=== PATIENT | female | born 1935 | race Caucasian/White ===

== ENCOUNTER 2018-03-12 08:29 | Outpatient (CLI) | payer MEDICARE | END 2018-03-12 08:30 | disposition home or self-care (01) | LOC: BICMAMMO 08:29 | PROVIDERS: ATTEND Family Medicine | DX: Z12.31 Encounter for screening mammogram for malignant neoplasm of breast (principal) | CPT/HCPCS: 77063; 77067 ==

== ENCOUNTER 2018-04-13 05:48 | Inpatient (IN) | payer MEDICARE ==
[2018-04-13] MEDS ORDERED: Diltiazem 125 MG/25 ML ONE (06:11)
[2018-04-13 06:29] LABS: #Basophils 0.1 thou/uL (0.0-0.2); #Eosinphils 0.2 thou/uL (0.0-0.7); #Lymphocytes 3.6 thou/uL (1.20-3.40); #Monocytes 0.8 thou/uL (0.11-0.59); #Neutrophils 5.3 thou/uL (1.40-6.50); %Basophils 0.9 % (0.0-1.0); %Eosinophils 1.6 % (0.0-10.0); %Lymphocytes 35.9 % (21.0-51.0); %Monocytes 8.3 % (0.0-10.0); %Neutrophils 53.4 % (42.0-75.0); Hemoglobin 13.3 g/dL (12.0-16.0); Mean Corpuscular HGB CONC 33.3 g/dL (32.0-36.0); Mean Corpuscular Hemoglobin 30.1 pg (27.0-31.0); Mean Corpuscular Volume 90.3 fl (81.0-99.0); Mean Platelet Volume 9.3 fL (7.4-10.4); Platelet Count 256 thou/uL (130-400); RBC Distribution Width 13.5 % (11.5-14.5); Red Blood Cell (RBC) Count 4.42 mill/uL (4.20-5.40)
[2018-04-13 06:44] LABS: ALT (SGPT) 145 U/L (8-55); AST (SGOT) 86 U/L (5-34); Albumin 4.1 g/dL (3.4-4.8); Alkaline Phosphatase 84 U/L (40-150); Anion Gap 9 mmol/L (10-20); BUN (Urea Nitrogen) 20 mg/dL (9.8-20.1); Bilirubin, Total 1.1 mg/dL (0.2-1.2); Calc. Creatinine Clearance 0 mL/min (70-130); Calcium 9.5 mg/dL (7.8-10.44); Carbon Dioxide 26 mmol/L (23-31); Chloride 108 mmol/L (98-107); Estimated GFR-MDRD 70; Globulin 2.9 g/dL (2.4-3.5); Glucose 121 mg/dL (83-110); Potassium 4.3 mmol/L (3.5-5.1); Sodium 139 mmol/L (136-145)
[2018-04-13 06:48] LABS: CKMB 0.8 ng/mL (0-6.6); Troponin I 0.012 ng/mL (< 0.028)
[2018-04-13] MEDS ORDERED: Diltiazem 125 MG in Sodium Chloride 0.9% 100 ML IVPB SCH (07:30)
[2018-04-13 08:14] LABS: Bilirubin Negative (Negative); Blood, Urine Negative (Negative); Clarity CLEAR (Clear); Glucose, Urine (Dipstick) Negative (Negative); Leukocyte Small (Negative); Nitrite Negative (Negative); Protein, Urine (Dipstick) Negative (Neg-Trace); pH, Urine 6.5 (5.0-9.0)
[2018-04-13 08:17] LABS: Bacteria/HPF None Seen HPF (None Seen); Hyaline Casts/LPF 0-3 HYALINE CAST LPF (0-3 Hyaline); RBC/HPF 0-3 HPF (0-3); Squamous Epithelial None Seen HPF (0-3); WBC/HPF 0-3 HPF (0-3)
--- NOTE | 2018-04-13 09:03 | RAD ---
CHEST 1 VIEW: HISTORY: Weakness. COMPARISON: 09/24/17. FINDINGS: Enlarged cardiac silhouette. The pulmonary vessels and hilum are normal. Costophrenic angles are cl ear. Interstitial opacities may represent edema. No consolidation or mass. No pneumothorax or osse ous abnormalities. IMPRESSION: Cardiomegaly. Interstitial opacities. Congestive heart failure. POS: [facility]
[2018-04-13 09:20] VITALS: BMI 26.9
[2018-04-13 09:49] LABS: Troponin I 0.012 ng/mL (< 0.028)
[2018-04-13] MEDS ORDERED: Prevnar 13-Val Conj/PF 0.5 ML SYRINGE IM ONE (10:00)
[2018-04-13] MEDS ORDERED: Enoxaparin Sodium 80 MG/0.8 ML SYRINGE SC SCH ×2 (11:15→21:00)
[2018-04-13 12:52] LABS: Troponin I 0.017 ng/mL (< 0.028)
--- NOTE | 2018-04-13 15:36 | HP ---
TIME: 11 a.m. HISTORY OF PRESENT ILLNESS: This is an 82-year-old white female with history of hypertension and hyp erlipidemia, who presents with chest discomfort and new onset atrial fibrillation. The patient has b een doing well. She has a history of SVT status post cardiac ablation. She has been followed by Dr. Sunshine for many years. She was doing well till approximately 4 weeks ago. She has been feeling m ore and more weak and fatigued. Then 2 weeks ago, her symptoms were becoming worse. She was complai juancarlos of increased shortness of breath and simply chest discomfort. She would feel discomfort especia lly with bending over and picking something up. This morning at approximately 5:00 a.m., she was fee ling worse than usual. She felt ill and something just was not right. She did not have obvious ches t pain or radiation. She has simply felt ill. She then requested her son to take her to the emergen cy room where she was diagnosed with new onset atrial fibrillation. At this time she is feeling okay . No complaints of chest pain or shortness of breath. She does feel her chest to be uncomfortable. PAST MEDICAL HISTORY: Hypothyroidism, history of SVT, hypertension, hyperlipidemia. PAST SURGICAL HISTORY: Include cardiac ablation. She has had moderate to severe aortic regurg as we ll as mitral regurg in the past. FAMILY HISTORY: Father with heart disease, at 72 with an IA. Mother at 93 with CHF. Sist er with breast cancer and brother with throat cancer. SOCIAL HISTORY: She is . She has 4 daughters and one son, 9 grands and several of great gran dkids. She has been a housewife for many years. MEDICATIONS: Aspirin 81 mg daily, lisinopril 15 mg daily, Lipitor 40 daily, and Synthroid 25 daily. REVIEW OF SYSTEMS: As above. PHYSICAL EXAMINATION: VITAL SIGNS: Temperature 98.0, pulse 85, respirations 16, pulse ox 95%, blood pressure 153/84. HEENT: Clear. NECK: Supple. HEART: Irregularly irregular, rate controlled. LUNGS: Clear. ABDOMEN: Soft. EXTREMITIES: With no edema. LABORATORY DATA: White count 10.0, hemoglobin and hematocrit 13 and 40, platelet of 256. Electrolyt es normal. Creatinine 0.79, BUN 20, blood sugar 121. Troponin I 0.012. BNP 280, AST 86, and ALT 14 5. ASSESSMENT: 1. New onset atrial fibrillation. 2. History of supraventricular tachycardia, status post cardiac ablation. 3. Hypothyroidism. 4. Hypertension. 5. Hyperlipidemia. 6. Elevated liver function tests, unknown etiology at this time. PLAN: 1. Consult Dr. Sunshine who patient has seen many times in the past. 2. We will need anticoagulation. 3. Echocardiogram. 4. We will have to work up the elevated liver function test.
[2018-04-13] MEDS: Carvedilol 3.125 MG TAB PO SCH (21:02)
[2018-04-13] MEDS: Atorvastatin Calcium 40 MG TAB PO SCH (21:02)
[2018-04-13] MEDS: Enoxaparin Sodium 80 MG/0.8 ML SYRINGE SC SCH (21:03)
[2018-04-14 04:56] LABS: Cardiac Risk 3.1 (Less than 4.5)
[2018-04-14] MEDS ORDERED: Sodium Chloride 0.9% 10 ML ONE (05:39)
[2018-04-14] MEDS: Furosemide 20 MG/2 ML VIAL SLOW IVP SCH ×2 (06:20→14:13)
[2018-04-14] MEDS: Levothyroxine Sodium 25 MCG TAB PO SCH (06:20)
[2018-04-14] MEDS: Aspirin 325 MG TAB PO SCH (08:42)
[2018-04-14] MEDS: Carvedilol 3.125 MG TAB PO SCH (08:42)
[2018-04-14] MEDS: Enoxaparin Sodium 80 MG/0.8 ML SYRINGE SC SCH ×2 (08:42→20:54)
[2018-04-14] MEDS ORDERED: Lisinopril 20 MG TAB PO SCH (09:00)
[2018-04-14] MEDS ORDERED: Lisinopril 10 MG TAB PO SCH (09:00)
--- NOTE | 2018-04-14 10:04 | PRG ---
DATE OF SERVICE: 04/14/2018 SUBJECTIVE: The patient is doing well. She is breathing easier. No complaints of chest pain or kierra rtness of breath. OBJECTIVE: VITAL SIGNS: Temperature 98.5, pulse 76, respirations 20, pulse oximetry 97, blood pressure 121/74. GENERAL: In no acute distress. HEART: Irregularly irregular, rate controlled. LUNGS: Clear. ABDOMEN: Soft. EXTREMITIES: With no edema. LABORATORY DATA: TSH 2.32. Cholesterol is 113, triglycerides 70. ASSESSMENT: 1. New onset atrial fibrillation, on Cardizem drip and rate is controlled. 2. Severe mitral regurgitation with enlarged right ventricle with an ejection fraction of 40%-45%. 3. Hypothyroidism, controlled. 4. Hypertension. 5. Hyperlipidemia. 6. Elevated liver function tests. 7. History of supraventricular tachycardia, status post cardiac ablation. 8. Elevated liver function tests, possibly secondary to liver congestion. PLAN: Continue to follow with Dr. Sunshine, maybe looking at a valve replacement in the near future.
--- NOTE | 2018-04-14 12:30 | CON ---
DATE OF CONSULTATION: 04/13/2018 HISTORY OF PRESENT ILLNESS: Jen Paul is an 82-year-old white female that was initially evaluated in 10/2002. At that time, she gave a 2 to 3 -year history of intermittent rapid heartbeat, which she tended to ignore. She later had another episode where she had weakness, poor energy level, headache and some lightheadedness. She continued to feel bad the following day and ultimately went to see Dr. Chino Dc. She was found to have a very rapid heartbeat and was sent to the emergency room. She denied any chest discomfort or shortness of breath. She was in supraventricular tachycardia with a rate of 177 per minute. She was given adenosine 6 mg followed by a second 6 mg bolus and her heart rate gradually slowed. She was started on Cardizem 20 mg IV bolus and then 10 mg per hour drip and converted to sinus rhythm. She was seen by Dr. Yovani Merchant. Since this was right before [place], it was felt she could be discharged. She came back one week later and underwent ablation of supraventricular tachycardia (A-V cathy reentry). She denies any significantly rapid heartbeat since that time. She also was followed periodically with echocardiograms due to valvular heart disease. In 04/2003, she had moderate mitral regurgitation and mild aortic insufficiency. This continued to gradually worsen and then in 07/2006, she had [id number] mitral regurgitation and suelfbwi-hb-mzvbnw aortic insufficiency. Her blood pressure was elevated on that day which may have contributed to her valvular abnormalities on that echo. She was hospitalized in 04/2007 with lower abdominal pain as well as chest pressure and nausea. The pressure in her chest only lasted several minutes. Cardiac enzymes were unremarkable. She underwent adenosine Cardiolite testing, which revealed no evidence of ischemia. Ejection fraction on echo was 55%-60% with moderate-to- severe aortic insufficiency and bktuclpa-ng-kasyab mitral regurgitation. She has continued to be followed for her valvular abnormalities and in general has been asymptomatic. She has been placed on gradually increasing doses of lisinopril for hypertension. When she was last seen in 04/2017, she was again instructed to use antibiotic prophylaxis as well as to report any exertional chest discomfort, shortness of breath or swelling. On her last echocardiogram in 04/2017, ejection fraction was 55%-60% with moderate mitral regurgitation, aortic valvular sclerosis, wrawazsr-bn-hzohip aortic regurgitation, moderate tricuspid regurgitation and mild pulmonic regurgitation. She apparently has been doing well until the last month. She began to notice exertional shortness of breath. She also has had some episodes of PND. Her most prominent symptom has been weakness and fatigue. She denies any peripheral edema. Also at times when she feels short of breath, she will have slight pressure in the lower part of sternum. Yesterday, she asked her son to take her to the emergency room due to how she was feeling. She was found to be in atrial fibrillation with fast ventricular response and is admitted. She has been placed on Cardizem drip. Her rate has slowed to the 80s-90s. She also has been placed on carvedilol 3.125 b.i.d. Cardiac enzymes have been unremarkable. PAST MEDICAL HISTORY: Hypothyroidism, hypercholesterolemia and hypertension. No history of diabetes. She has hypothyroidism. History of supraventricular tachycardia with ablation. OPERATIONS: Ablation of her supraventricular tachycardia. MEDICATIONS AT HOME: Include lisinopril 15 mg daily, levothyroxine 25 mcg daily , atorvastatin 40 daily, and aspirin 81 daily. ALLERGIES: None. SOCIAL HISTORY: She does not smoke or drink. She is and lives alone. FAMILY HISTORY: Father had myocardial infarction at age 72. REVIEW OF SYSTEMS: Twelve-point review of systems otherwise unremarkable. PHYSICAL EXAMINATION: VITAL SIGNS: Blood pressure 148/80, pulse of 88. HEENT: PERRL. NECK: Supple. CHEST: Reveals faint crackles at the bases. CARDIAC: S1 and S2 are normal, without any S3 or S4. There is a 2/6 holosystolic murmur along the lower left sternal border and at the apex. Carotid upstrokes normal without bruits. ABDOMEN: Normal bowel sounds without tenderness. EXTREMITIES: Revealed no clubbing, cyanosis or edema. NEUROLOGIC: Grossly intact. SKIN: Warm and dry. IMAGING DATA AND LABORATORY DATA: EKG revealed atrial fibrillation with rapid ventricular response of 129 per minute with nonspecific ST and T-wave changes. Cardiac enzymes are negative x3. BNP 280.2. Sodium 139, potassium 4.3, chloride 108, carbon dioxide 26, BUN 20, creatinine 0.79. AST is 86 and ALT is 145. CBC is unremarkable. Chest x-ray reveals cardiomegaly with evidence of congestive heart failure with increased pulmonary vascularity. Echocardiogram revealed mild left ventricular dysfunction with ejection fraction of 40%-45% ( was 55%-60% 1 year ago), moderately dilated right ventricle, moderate left atrial enlargement, marked right atrial enlargement, severe mitral regurgitation , aortic valvular sclerosis, moderate aortic regurgitation and severe tricuspid regurgitation. IMPRESSION: 1. Acute on chronic systolic and diastolic heart failure. She has had significant worsening of her left ventricular function. 2. New onset of atrial fibrillation with rapid ventricular response. 3. Severe mitral regurgitation, moderate aortic insufficiency. 4. Hypertension. 5. Hyperlipidemia. 6. Positive family history. 7. Elevated liver function test, probably due to hepatic congestion from her heart failure. 8. History of supraventricular tachycardia ablation in 10/2002. PLAN: With her current blood pressure, we will increase the lisinopril to 20 mg q.a.m. and also we will probably gradually increase the carvedilol and taper the Cardizem IV. She also will need to be diuresed and she will be started on Lasix 20 mg IV b.i.d. TSH and fasting lipid profile will be obtained. Once she is adequately diuresed, then consideration will be given to further evaluation regarding her valvular abnormalities and probably some form of definitive treatment will need to be considered. I feel with her atrial fibrillation that she needs to be anticoagulated, she has been placed on Lovenox 1 mg/kg b.i.d. With her atrial fibrillation, probably due to severe mitral regurgitation. Coumadin would be essentially our only option for anticoagulation. I would hold off on starting that until further invasive testing is done such as cardiac catheterization. I do not feel that any attempt should be made to return her to a sinus rhythm, with her severe mitral regurgitation she would probably recur very quickly after cardioversion. ISAAC
[2018-04-14] MEDS: Atorvastatin Calcium 40 MG TAB PO SCH (20:55)
[2018-04-15 03:04] LABS: Hemoglobin 12.6 g/dL (12.0-16.0); Platelet Count 241 thou/uL (130-400)
[2018-04-15 03:50] LABS: ALT (SGPT) 78 U/L (8-55); AST (SGOT) 26 U/L (5-34); Albumin 3.8 g/dL (3.4-4.8); Alkaline Phosphatase 69 U/L (40-150); Anion Gap 12 mmol/L (10-20); BUN (Urea Nitrogen) 19 mg/dL (9.8-20.1); Calc. Creatinine Clearance 64 mL/min (70-130); Calcium 9.3 mg/dL (7.8-10.44); Carbon Dioxide 24 mmol/L (23-31); Chloride 106 mmol/L (98-107); Estimated GFR-MDRD 74; Globulin 2.6 g/dL (2.4-3.5); Glucose 91 mg/dL (83-110); Potassium 3.4 mmol/L (3.5-5.1); Protein, Total 6.4 g/dL (6.0-8.3); Sodium 139 mmol/L (136-145)
[2018-04-15] MEDS ORDERED: Sodium Chloride 0.9% 10 ML ONE (05:29)
[2018-04-15] MEDS: Furosemide 20 MG/2 ML VIAL SLOW IVP SCH ×2 (05:37→13:40)
[2018-04-15] MEDS: Levothyroxine Sodium 25 MCG TAB PO SCH (05:37)
[2018-04-15] MEDS: Carvedilol 6.25 MG TAB PO SCH ×2 (08:00→16:26)
[2018-04-15] MEDS: Aspirin 325 MG TAB PO SCH (08:00)
[2018-04-15] MEDS: Enoxaparin Sodium 80 MG/0.8 ML SYRINGE SC SCH ×2 (08:01→20:22)
[2018-04-15] MEDS: Lisinopril 10 MG TAB PO SCH (08:01)
--- NOTE | 2018-04-15 11:11 | PRG ---
DATE OF SERVICE: 04/15/2018 SUBJECTIVE: The patient continues to do well. No complaints of chest pain or shortness of breath. However, she remains in atrial fibrillation. OBJECTIVE: VITAL SIGNS: Temperature 97.6, pulse 91, respirations 16, pulse oximetry 96, blood pressure 134/61. I's and O's -759. ASSESSMENT: 1. New onset atrial fibrillation. 2. Acute on chronic systolic and diastolic congestive heart failure. 3. Ejection fraction 55-60% to 40-45%. 4. Severe mitral regurgitation and moderate aortic insufficiency. 5. Hypertension. 6. Hyperlipidemia. 7. Hypothyroidism. 8. Elevated liver function tests secondary to liver congestion. 9. History of supraventricular tachycardia status post cardiac ablation. PLAN: 1. Coreg has been increased and lisinopril decreased. 2. Continue Lasix and diuresis. 3. CASSANDRA possibly in the a.m. 4. Continue to follow the atrial fibrillation and hopefully she converts spontaneously.
[2018-04-15] MEDS ORDERED: Amiodarone In Dextrose 200 ML IVPB SCH (13:45)
[2018-04-15] MEDS ORDERED: Potassium Chloride 20 MEQ TAB PO SCH (13:45)
[2018-04-15] MEDS ORDERED: Furosemide 20 MG/2 ML VIAL SLOW IVP SCH (14:00)
[2018-04-15] MEDS ORDERED: Amiodarone HCl 150 MG in Dextrose 5% in Water 100 ML IVPB SCH (14:00)
[2018-04-15] MEDS: Furosemide 40 MG/4 ML VIAL SLOW IVP SCH (14:11)
[2018-04-15] MEDS: Amiodarone HCl 450 MG, Admixture Fee 1 EACH in Dextrose 5% in Water 250 ML IVPB SCH ×2 (14:31→23:50)
[2018-04-15] MEDS: Atorvastatin Calcium 40 MG TAB PO SCH (20:22)
[2018-04-16 05:44] LABS: Anion Gap 12 mmol/L (10-20); BUN (Urea Nitrogen) 24 mg/dL (9.8-20.1); Calc. Creatinine Clearance 56 mL/min (70-130); Calcium 9.4 mg/dL (7.8-10.44); Carbon Dioxide 25 mmol/L (23-31); Chloride 104 mmol/L (98-107); Estimated GFR-MDRD 64; Glucose 94 mg/dL (83-110); Potassium 3.9 mmol/L (3.5-5.1); Sodium 137 mmol/L (136-145)
[2018-04-16] MEDS: Furosemide 40 MG/4 ML VIAL SLOW IVP SCH (05:54)
[2018-04-16] MEDS: Levothyroxine Sodium 25 MCG TAB PO SCH (05:54)
[2018-04-16] MEDS ORDERED: PROPOFOL 20 ML ONE (09:04)
[2018-04-16] MEDS: Enoxaparin Sodium 80 MG/0.8 ML SYRINGE SC SCH ×2 (10:25→21:06)
[2018-04-16] MEDS: Lisinopril 10 MG TAB PO SCH (10:26)
[2018-04-16] MEDS: Aspirin 325 MG TAB PO SCH (10:26)
[2018-04-16] MEDS: Carvedilol 6.25 MG TAB PO SCH ×2 (10:27→17:01)
--- NOTE | 2018-04-16 12:32 | PRG ---
DATE OF SERVICE: 04/16/2018 SUBJECTIVE: The patient is feeling much better today. She is status post cardioversion and a CASSANDRA th is morning. She is presently in sinus rhythm. She is feeling much better than when she came in. No complaints of chest pain or shortness of breath at this time. PHYSICAL EXAMINATION: VITAL SIGNS: Temperature 97.6, pulse 70, blood pressure 121/69, 100% on room air. GENERAL: Patient in no acute distress. HEART: Regular rate and rhythm with occasional PACs. LUNGS: Clear. ABDOMEN: Soft. EXTREMITIES: With no edema. LABORATORY: Electrolytes normal. Creatinine 0.85, BUN 24. ASSESSMENT: 1. New onset atrial fibrillation. 2. Postop day #0, status post cardioversion and CASSANDRA, presently in a sinus rhythm. 3. Acute on chronic systolic and diastolic congestive heart failure with ejection fraction from 55%- 60% to 40%-45%. 4. Severe mitral regurgitation and moderate aortic insufficiency. 5. Hypertension. 6. Hyperlipidemia. 7. Hypothyroid. 8. Elevated liver function tests were improved. 9. History of supraventricular tachycardia, status post cardiac ablation. PLAN: 1. Continue to monitor over the next 24 hours. 2. CASSANDRA results are pending.
[2018-04-16] MEDS ORDERED: Communication Order-Pharmacy FS SCH (18:15)
[2018-04-16] MEDS: Atorvastatin Calcium 40 MG TAB PO SCH (21:05)
--- NOTE | 2018-04-16 23:32 | ECHO ---
This is an 82-year-old woman with paroxysmal atrial fibrillation and mitral regurgitation. The patient taken to PACU. The patient was sedated by anesthesiology. A transesophageal probe was pl aced distally in the esophagus and stomach. Echocardiographic images were obtained and the transesop hageal probe was removed. FINDINGS: 1. Normal left ventricular systolic function. 2. Biatrial enlargement. 3. Structurally normal mitral valve. 4. Moderate to severe mitral regurgitation. 5. Severe tricuspid regurgitation. 6. Mild aortic regurgitation. 7. No thrombus in the left atrium or left atrial appendage. 8. Atherosclerotic debris in the descending aorta IMPRESSION: Moderate to severe mitral regurgitation with a structurally normal mitral valve and no thrombus noted in the left atrium or left atrial appendage.
--- NOTE | 2018-04-16 23:54 | EKG ---
Test Reason : POST CASSANDRA/CARDIOVERSI Blood Pressure : / mmHG Vent. Rate : 063 BPM Atrial Rate : 063 BPM P-R Int : 152 ms QRS Dur : 082 ms QT Int : 480 ms P-R-T Axes : 078 027 038 degrees QTc Int : 491 ms Sinus rhythm with Premature supraventricular complexes Prolonged QT Abnormal ECG When compared with ECG of 13-APR-2018 06:00, (Unconfirmed) Sinus rhythm has replaced Atrial fibrillation Vent. rate has decreased BY 66 BPM Confirmed by Mo MCGILL ([id number]) on 04/16/2018 11:53:38 PM Referred By: KRYSTAL Confirmed By:Mo MCGILL
[2018-04-17] MEDS: Levothyroxine Sodium 25 MCG TAB PO SCH (05:33)
[2018-04-17 05:40] LABS: Hemoglobin 12.3 g/dL (12.0-16.0); Platelet Count 253 thou/uL (130-400)
[2018-04-17 05:52] LABS: Anion Gap 11 mmol/L (10-20); Calc. Creatinine Clearance 57 mL/min (70-130); Calcium 9.2 mg/dL (7.8-10.44); Carbon Dioxide 27 mmol/L (23-31); Chloride 104 mmol/L (98-107); Estimated GFR-MDRD 66; Glucose 91 mg/dL (83-110); Potassium 3.8 mmol/L (3.5-5.1); Sodium 138 mmol/L (136-145)
[2018-04-17 06:46] LABS: BUN (Urea Nitrogen) 20 mg/dL (9.8-20.1)
--- NOTE | 2018-04-17 08:01 | PRG ---
DATE OF SERVICE: 04/17/2018 SUBJECTIVE: The patient continues to do well. She states she is feeling so much better than before she came in. OBJECTIVE: VITAL SIGNS: Temperature 97.5, pulse 61, respirations 18, pulse ox 98, blood pressure 119/51. HEART: Regular rate and rhythm. LUNGS: Clear. ABDOMEN: Soft. EXTREMITIES: With no edema. LABORATORY DATA AND IMAGING: H&H is 12 and 38. Electrolytes: Sodium 138, potassium 3.8, creatinine 0.83, BUN 20. CASSANDRA showed moderate to severe mitral regurg, severe tricuspid regurg with a normal le ft ventricular systolic function. ASSESSMENT: 1. New onset atrial fibrillation, converted to a normal sinus rhythm. 2. Postop day #1, status post cardioversion and transesophageal echocardiography. 3. Acute on chronic systolic and diastolic congestive heart failure with ejection fraction of 40%-45 %. 4. Severe mitral and tricuspid regurgitation with aortic insufficiency. 5. Hypertension. 6. Hyperlipidemia. 7. Hypothyroid. 8. Elevated liver function test, improved. 9. History of supraventricular tachycardia status post cardiac ablation. PLAN: 1. I had a long discussion with the patient about options. I also discussed the case with Dr. Shekhar trinidad. Cardiac catheterization is planned for tomorrow. 2. Mitral valve replacement is an option being considered. However, the patient well aware of the r isks and complications involved. We will continue to follow.
[2018-04-17] MEDS: Enoxaparin Sodium 80 MG/0.8 ML SYRINGE SC SCH ×2 (09:23→21:11)
[2018-04-17] MEDS: Amiodarone 200 MG TAB PO SCH ×2 (09:26→21:11)
[2018-04-17] MEDS: Carvedilol 6.25 MG TAB PO SCH ×2 (09:26→18:38)
[2018-04-17] MEDS: Aspirin 325 MG TAB PO SCH (09:26)
[2018-04-17] MEDS: Lisinopril 10 MG TAB PO SCH (09:27)
[2018-04-17] MEDS: Furosemide 40 MG TAB PO SCH (09:27)
[2018-04-17] MEDS: Atorvastatin Calcium 40 MG TAB PO SCH (21:11)
[2018-04-18] MEDS: Aspirin 325 MG TAB PO SCH (05:04)
[2018-04-18] MEDS: Levothyroxine Sodium 25 MCG TAB PO SCH (05:04)
[2018-04-18] MEDS: Lisinopril 10 MG TAB PO SCH (05:05)
[2018-04-18] MEDS: Carvedilol 6.25 MG TAB PO SCH ×2 (05:05→20:03)
[2018-04-18] MEDS: Amiodarone 200 MG TAB PO SCH ×2 (05:05→21:05)
[2018-04-18] MEDS ORDERED: Sodium Chloride 0.9% 1,000 ML IV SCH (06:00)
[2018-04-18 06:02] LABS: Anion Gap 12 mmol/L (10-20); BUN (Urea Nitrogen) 21 mg/dL (9.8-20.1); Calc. Creatinine Clearance 60 mL/min (70-130); Calcium 9.2 mg/dL (7.8-10.44); Carbon Dioxide 26 mmol/L (23-31); Chloride 104 mmol/L (98-107); Estimated GFR-MDRD 69; Glucose 89 mg/dL (83-110); Sodium 138 mmol/L (136-145)
[2018-04-18] MEDS: Furosemide 40 MG TAB PO SCH (07:30)
--- NOTE | 2018-04-18 07:34 | PRG ---
DATE OF SERVICE: 04/18/2018 SUBJECTIVE: The patient continuesf to do well. No complaints of chest pain or shortness of breath. Preparing for cardiac catheterization this a.m. OBJECTIVE: VITAL SIGNS: Temperature 97.6, pulse 61, respirations 18, pulse ox 97, blood pressure 140/64. I's a nd O's -650. HEART: Regular rate and rhythm. LUNGS: Clear. ABDOMEN: Soft. EXTREMITIES: No edema. LABORATORY DATA: Electrolytes normal. Creatinine 0.80, BUN 21. ASSESSMENT: 1. New onset atrial fibrillation, converted to normal sinus rhythm. 2. Postop day #2, status post cardioversion and transesophageal echocardiography. 3. Acute on chronic systolic and diastolic congestive heart failure with ejection fraction of 40%-45 %. 4. Severe mitral and tricuspid regurgitation with aortic insufficiency. 5. Elevated liver function tests, improved. 6. Hypertension. 7. Hyperlipidemia. 8. Hypothyroid. 9. History of supraventricular tachycardia status post ablation in 10/2002. PLAN: 1. Cardiac catheterization this morning. 2. Dr. Ramey to cover this weekend.
[2018-04-18] MEDS ORDERED: Lidocaine 1% (PF) 30 ML VIAL ONE (08:37)
[2018-04-18] MEDS ORDERED: Midazolam HCl 2 mg/2 ml Vial ONE (09:09)
[2018-04-18] MEDS ORDERED: Heparin 10,000 UNITS/1 ML VIAL ONE (09:09)
[2018-04-18] MEDS ORDERED: Fentanyl 100 MCG/2 ML VIAL ONE (09:10)
[2018-04-18] MEDS ORDERED: Protamine Sulfate 50 MG/5 ML VIAL ONE (09:40)
[2018-04-18] MEDS ORDERED: Nitroglycerin 0.4 MG TAB (25 Tab Bottle) SL PRN (10:04)
[2018-04-18] MEDS ORDERED: traMADol HCl 50 MG TAB PO PRN (10:04)
[2018-04-18] MEDS ORDERED: Acetaminophen/Codeine 30-300mg Tablet PO PRN ×2 (10:04)
[2018-04-18] MEDS: Sodium Chloride 0.9% 1,000 ML IV SCH ×2 (10:10→18:30)
[2018-04-18] MEDS ORDERED: Sodium Chloride 0.9% 200 ML IV SCH (10:15)
[2018-04-18] MEDS ORDERED: Iopamidol 370 76% 50 ML VIAL FS ONE (11:36)
[2018-04-18] MEDS ORDERED: Iopamidol 370 76% 100 ML VIAL ONE (11:36)
[2018-04-18] MEDS: Atorvastatin Calcium 40 MG TAB PO SCH (21:05)
[2018-04-19 05:36] LABS: Anion Gap 9 mmol/L (10-20); BUN (Urea Nitrogen) 20 mg/dL (9.8-20.1); Calc. Creatinine Clearance 71 mL/min (70-130); Calcium 9.2 mg/dL (7.8-10.44); Carbon Dioxide 23 mmol/L (23-31); Chloride 108 mmol/L (98-107); Estimated GFR-MDRD 85; Glucose 97 mg/dL (83-110); Potassium 4.3 mmol/L (3.5-5.1); Sodium 136 mmol/L (136-145)
[2018-04-19] MEDS: Levothyroxine Sodium 25 MCG TAB PO SCH (06:42)
[2018-04-19] MEDS: Sodium Chloride 0.9% 1,000 ML IV SCH ×2 (06:44→11:57)
--- NOTE | 2018-04-19 08:41 | ULT ---
RIGHT GROIN ULTRASOUND: Date: 04/19/18 HISTORY: Heart cath yesterday with right groin bleeding. FINDINGS: Real-time imaging of the right groin shows no evidence of any significant hematoma or evidence for ps eudoaneurysm. IMPRESSION: Unremarkable right groin ultrasound. POS: [facility]
[2018-04-19] MEDS: Carvedilol 6.25 MG TAB PO SCH ×2 (09:45→16:27)
[2018-04-19] MEDS: Furosemide 40 MG TAB PO SCH (09:45)
[2018-04-19] MEDS: Lisinopril 10 MG TAB PO SCH (09:46)
[2018-04-19] MEDS: Aspirin 325 MG TAB PO SCH (09:46)
[2018-04-19] MEDS: Amiodarone 200 MG TAB PO SCH ×2 (09:46→21:17)
[2018-04-19] MEDS: Atorvastatin Calcium 40 MG TAB PO SCH (21:17)
[2018-04-20 05:05] LABS: Anion Gap 8 mmol/L (10-20); BUN (Urea Nitrogen) 18 mg/dL (9.8-20.1); Calc. Creatinine Clearance 64 mL/min (70-130); Calcium 8.9 mg/dL (7.8-10.44); Carbon Dioxide 25 mmol/L (23-31); Chloride 107 mmol/L (98-107); Estimated GFR-MDRD 76; Glucose 99 mg/dL (83-110); Sodium 136 mmol/L (136-145)
[2018-04-20] MEDS: Levothyroxine Sodium 25 MCG TAB PO SCH (06:39)
[2018-04-20] MEDS: Lisinopril 10 MG TAB PO SCH (08:25)
[2018-04-20] MEDS: Furosemide 40 MG TAB PO SCH (08:25)
[2018-04-20] MEDS: Aspirin 325 MG TAB PO SCH (08:25)
[2018-04-20] MEDS: Amiodarone 200 MG TAB PO SCH ×2 (08:25→20:44)
[2018-04-20] MEDS: Carvedilol 6.25 MG TAB PO SCH ×2 (08:26→16:47)
--- NOTE | 2018-04-20 20:36 | PDOC.CTH ---
Cardiology Progress Note - Subjective She is doing well. She is off O2 and breathing is at baseline. - Objective Vital Signs Temp Pulse Resp BP Pulse Ox 04/20/18 16:00 98.1 F 64 16 168/88 H 98 04/20/18 12:37 97.3 F L 58 L 16 123/60 95 Weight 145 lb 9.6 oz 04/19/18 04/20/18 04/21/18 06:59 06:59 06:59 Intake Total 1720 2800 984 Output Total 800 1050 1190 Balance 920 1750 -206 - Physical Examination General/Neuro: alert & oriented x3, NAD Neck: no JVD present Lungs: unlabored respirations Heart: RRR Abdomen: NT/ND Extremities: other: (no edema) - Telemetry Telemetry Rhythm: NSR - Labs Result Diagrams: 04/17/18 05:05 04/20/18 04:36 Troponin/CKMB CK-MB (CK-2) 0.8 ng/mL (0-6.6) 04/13/18 06:17 Troponin I 0.017 ng/mL (< 0.028) 04/13/18 12:14 - Assessment/Plan 1. Acute diastolic heart failure 2. Severe MR 3. Severe TR 4. Mild LV dysfunction EF at 40-45% 5. New onset Afib. PLAN: - Seems euvolemic now. - Continue amiodarone load at 400 mg BID for 7 more days then down to 200 mg daily.
[2018-04-20] MEDS: Atorvastatin Calcium 40 MG TAB PO SCH (20:44)
[2018-04-21] MEDS: Levothyroxine Sodium 25 MCG TAB PO SCH (05:32)
[2018-04-21 05:55] LABS: Anion Gap 10 mmol/L (10-20); BUN (Urea Nitrogen) 16 mg/dL (9.8-20.1); Calc. Creatinine Clearance 62 mL/min (70-130); Calcium 9.2 mg/dL (7.8-10.44); Carbon Dioxide 25 mmol/L (23-31); Chloride 106 mmol/L (98-107); Estimated GFR-MDRD 74; Glucose 88 mg/dL (83-110); Potassium 4.1 mmol/L (3.5-5.1); Sodium 137 mmol/L (136-145)
--- NOTE | 2018-04-21 08:36 | CON ---
DATE OF CONSULTATION: 04/19/2018 REQUESTING PHYSICIAN: Dr. Sunshine. CHIEF COMPLAINT: Decreased exercise tolerance and shortness of breath. HISTORY OF PRESENT ILLNESS: The patient is a very independent and fairly fit 82-year-old woman. She is a for many years and has a lot of local family, but she lives alone, and by report, insists on doing her own yard work and cleaning her own gutters. She came to cardiac attention in her mid 6 0s when progressive palpitations led to an ablation of a supraventricular tachycardia. She has been followed with known mitral regurgitation for many years, and at her most recent checkup, she still guy d a good exercise tolerance and an ejection fraction in the 50%-55% range. She recently presented wi a progressive shortness of breath over about the last month or so and decided to go to the [facility], because of profound weakness and not feeling well. She was found to be in atrial fibrillation, an d she began to feel better, as her rate came under control. Echocardiography showed severe mitral re gurgitation, but it also demonstrated a deterioration in her LV function with her ejection fraction b eing in the 40%-45% range. She has been converted into a sinus rhythm, and so far, has maintained th at. Echocardiography also has a significant tricuspid regurgitation and some aortic insufficiency. Cardiac catheterization demonstrated minimal coronary disease, but 3-4+ mitral regurgitation. The pa tient denies any history of bleeding problems or seems to have any other overt contraindications to a nticoagulation. PAST MEDICAL HISTORY: Significant for hypothyroidism, hypertension, hypercholesterolemia, and a dist ant history of an ablation of a supraventricular tachycardia. HOME MEDICATIONS: Are lisinopril 15 mg a day, Synthroid 25 mcg a day, atorvastatin 40 mg a day, and a baby aspirin a day. Here her aspirin has been increased to an adult aspirin a day and she is on am iodarone, Coreg, and Lasix. Her lisinopril has been dropped to 10 mg a day. SOCIAL HISTORY: She does not smoke or drink alcohol. FAMILY HISTORY: Her father of a heart attack in his early to mid 70s. Her mother lived to age 94. REVIEW OF SYSTEMS: Negative for any transient eye, speech, facial, or extremity symptoms to suggest TIAs. Negative for any heartburn or other dyspepsia. Negative for any history of abnormal bleeding, no hematemesis, no melena, no hematochezia. No unusual forgetfulness, and according to family, no u nreliability with taking her medications. No history of instability or falls. PHYSICAL EXAMINATION: VITAL SIGNS: On exam, she is 5 feet 2 inches, weighs 145.5 pounds. She has a healing fever blister on her upper lip. Her heart rate is sinus rhythm at about 60, blood pressure 137/62, room air sats a re 95%. HEENT: She has no xanthelasma. NECK: No JVD, no carotid bruits. CHEST: Clear to auscultation. CARDIOVASCULAR: She has a regular rate and rhythm and I am not able to appreciate any murmur or any gallop. ABDOMEN: Soft and nontender, without any fluid wave or organomegaly. No hepatojugular reflux. She has easily palpable radial, femoral, popliteal, dorsalis pedis, and posterior tibial pulses. EXTREMITIES: She has no clubbing, cyanosis, or edema. NEUROLOGIC EXAM: Grossly nonfocal. LABORATORY EXAM: Showed a white count of 10, hemoglobin ranging from 12.3-13.3, platelets in the 250 ,000 range with an MCV of 90.3. Her electrolytes have been normal. Her creatinines have all been in the 0.7-0.9 range and BUN is in the high teens to low 20s. Glucoses evolved around 90. Her urinaly sis was clean. Her initial chest x-ray shows what looks like pulmonary edema with significant cardio megaly with cardiothoracic ratio of around 0.7, and perhaps some upward displacement of the left main stem bronchus and a prominence of the cardiac silhouette just below the aortic knob consistent with an enlarged left atrial appendage. There is some opacity right laterally at the takeoff of the right main stem bronchus suggestive of engorgement of the azygos. Her echocardiogram shows a very small a mount of aortic insufficiency with a structurally normal-appearing valve. She has severe mitral and tricuspid regurgitation, particularly mitral without any obvious structural abnormalities of either v alve. LVEF is now around 40%-45%. Her cardiac catheterization showed some luminal irregularity in m ultiple coronaries, but no obstructive lesions, somewhat large heart, 3-4+ mitral regurgitation, and LVEF that is a little bit difficult to evaluate, because of the severity of the mitral regurgitation, but would seem to be on the order of about 40%. No aortic root shot was done. IMPRESSION AND RECOMMENDATIONS: Clearly, the patient has severe mitral regurgitation and is now star ting to decompensate and intervention is warranted. The issue in my mind should intervention be unde rtaken, but exactly how it should be addressed. On her cardiac catheterization, she had an RA pressu re of 14 and RV of 42/2, PA of 44/17 and a wedge pressure of 16. She had no significant transaortic valvular gradient with an aortic pressure of 109/53 and LV pressure 118/2 with an EDP of 15. My conc choco is with regard to the tricuspid valve is that the severity of its regurgitation may be out of pro portion to the elevation in the PA pressures and that addressing her mitral valve may not be adequate to deal with her tricuspid regurgitation, although she is currently in a sinus rhythm. The size of her left atrium would certainly put her at risk of recurrence of atrial fibrillation and some sort of a maze procedure may also be warranted. While this lady certainly is a very fit-appearing 82-year-o ld woman and at least on her mother's side of the family has longevity on her side, it would be easy to turn this into more operation and she is up to recovering from easily. I think that it would be w arranted given her current compensation to discuss things with my partners and with the various cardi ologists to come up with a consensus of an approach for this woman.
[2018-04-21] MEDS: Furosemide 40 MG TAB PO SCH (08:38)
[2018-04-21] MEDS: Carvedilol 6.25 MG TAB PO SCH (08:38)
[2018-04-21] MEDS: Amiodarone 200 MG TAB PO SCH (08:38)
[2018-04-21] MEDS: Aspirin 325 MG TAB PO SCH (08:38)
[2018-04-21] MEDS: Lisinopril 10 MG TAB PO SCH (08:39)
[2018-04-21 10:56] VITALS: BP 127/57; TEMP 97.6
--- NOTE | 2018-04-21 14:17 | DIS ---
DATE OF ADMISSION: 04/13/2018 DATE OF DISCHARGE: 04/21/2018 ADMITTING DIAGNOSIS: Atrial fibrillation. DISCHARGE DIAGNOSES: Atrial fibrillation with multivalvular disease, significant aortic insufficienc y, and severe mitral regurgitation. CONSULTATIONS: Cardiology, Dr. Sunshine; and Cardiovascular Surgery, Dr. Hill. HOSPITAL COURSE: The patient is an 82-year-old female, patient of Dr. Chino Dc'roberto carlos, who came in due to symptomatic atrial fibrillation. Further evaluation included a cardiac catheterizatio n, which showed no significant coronary artery disease, but also had noted murmurs and valvular disea se, and a CASSANDRA was done, which showed severe mitral regurge and moderate aortic insufficiency. Dr. Karla sawant consulted CV Surgery. They evaluated the patient and came up with a plan to do a specialized procedure of MitraClip. After chemical cardioversion and electrical cardioversion has remained in no rmal sinus rhythm for more than 30 hours. Plan is to discharge to home and have her follow up with Linsey Hill the week after discharge and to follow up with Dr. Sunshine and Dr. Dc after that. DISCHARGE MEDICATIONS: We will continue her home medications of Lipitor, Synthroid, lisinopril. We will add several new medicines of Eliquis 2.5 mg twice a day, amiodarone 400 mg twice a day, carvedil ol 6.25 mg twice a day, Lasix 40 mg a day, and potassium 20 mEq a day. These have already been sent electronically to her [facility] pharmacy on [address] by the outpatient EMR, eCW. The patient and her linsey josé, in the room, had no further questions at the time of discharge.
--- NOTE | 2018-04-21 14:39 | PDOC.CTH ---
Cardiology Progress Note - Subjective No new issues. She is doing well. - Objective Vital Signs Temp Pulse Resp BP BP Pulse Ox 04/21/18 10:56 97.6 F 56 L 16 127/57 L 96 04/21/18 08:00 97.8 F 56 L 18 04/21/18 07:44 97.8 F 56 L 18 141/66 H 97 04/21/18 04:00 97.8 F 65 16 127/62 94 L Weight 145 lb 9.6 oz 04/20/18 04/21/18 04/22/18 06:59 06:59 06:59 Intake Total 2800 1460 Output Total 1050 1190 900 Balance 1750 270 -900 - Physical Examination General/Neuro: alert & oriented x3, NAD Neck: no JVD present Lungs: CTA Heart: RRR Abdomen: NT/ND Extremities: other: (no edema.) - Telemetry Telemetry Rhythm: NSR - Labs Result Diagrams: 04/17/18 05:05 04/21/18 05:25 Troponin/CKMB CK-MB (CK-2) 0.8 ng/mL (0-6.6) 04/13/18 06:17 Troponin I 0.017 ng/mL (< 0.028) 04/13/18 12:14 - Assessment/Plan 1. Acute diastolic heart failure 2. Severe MR 3. Severe TR 4. Mild LV dysfunction EF at 40-45% 5. New onset Afib. PLAN: - Seems euvolemic now. - Continue amiodarone load at 400 mg BID for 6 more days then down to 200 mg daily. - Eliquis for stroke prophylaxis. - Patient wants to be discharged home and do work up as an outpatient.
== END 2018-04-21 13:19 | disposition home or self-care (01) | DRG 286 ==
LOC: ERS 05:48 → 2NO 09:07
PROVIDERS: ADMIT Family Medicine; ATTEND Family Medicine
PROC: B246ZZ4 Ultrasonography of Right and Left Heart, Transesophageal (ICD-10-PCS; 2018-04-13)
PROC: 3E0234Z Introduction of Serum, Toxoid and Vaccine into Muscle, Percutaneous Approach (ICD-10-PCS; 2018-04-13)
PROC: 4A023N8 Measurement of Cardiac Sampling and Pressure, Bilateral, Percutaneous Approach (ICD-10-PCS; principal; 2018-04-18)
PROC: B215YZZ Fluoroscopy of Left Heart using Other Contrast (ICD-10-PCS; 2018-04-18)
PROC: B211YZZ Fluoroscopy of Multiple Coronary Arteries using Other Contrast (ICD-10-PCS; 2018-04-18)
DX: I48.91 Unspecified atrial fibrillation (principal); I50.43 Acute on chronic combined systolic (congestive) and diastolic (congestive) heart failure; I11.0 Hypertensive heart disease with heart failure; E78.5 Hyperlipidemia, unspecified; I08.3 Combined rheumatic disorders of mitral, aortic and tricuspid valves; K76.1 Chronic passive congestion of liver; E03.9 Hypothyroidism, unspecified; Z79.82 Long term (current) use of aspirin; Z79.899 Other long term (current) drug therapy; Z82.49 Family history of ischemic heart disease and other diseases of the circulatory system; Z80.3 Family history of malignant neoplasm of breast; Z80.8 Family history of malignant neoplasm of other organs or systems; Z23 Encounter for immunization
CPT/HCPCS: 36415; 71045; 80048; 80053; 80061; 81003; 81015; 82553; 83735; 83880; 84443; 84484; 85014; 85018; 85025; 85049; 85347; 90471; 90670; 93005; 93010; 93306; 93312; 93460; 93798; 93926; 96365; 96376; 99152; 99153; A4216; C1769; G0009; J0282; J1644; J1650; J1940; J2001; J2250; J2704; J2720; J3010; J7050; J7070

== ENCOUNTER 2018-08-31 20:36 | Observation (INO) | payer MEDICARE ==
[2018-08-31 21:11] LABS: #Eosinphils 0.2 thou/uL (0.0-0.7); #Neutrophils 4.7 thou/uL (1.40-6.50); %Basophils 0.6 % (0.0-1.0); %Eosinophils 2.6 % (0.0-10.0); %Lymphocytes 25.5 % (21.0-51.0); %Monocytes 12.2 % (0.0-10.0); %Neutrophils 59.1 % (42.0-75.0); Mean Corpuscular HGB CONC 31.4 g/dL (32.0-36.0); Mean Corpuscular Volume 95.6 fL (78.0-98.0); Mean Platelet Volume 8.7 fL (7.4-10.4); Platelet Count 258 thou/uL (130-400); RBC Distribution Width 13.8 % (11.5-14.5); Red Blood Cell (RBC) Count 3.34 mill/uL (4.20-5.40)
[2018-08-31] MEDS ORDERED: Ondansetron HCl/PF 4 MG/2 ML Vial ONE (21:11)
[2018-08-31 21:35] LABS: ALT (SGPT) 50 U/L (8-55); AST (SGOT) 42 U/L (5-34); Albumin 3.8 g/dL (3.4-4.8); Alkaline Phosphatase 62 U/L (40-150); Anion Gap 11 mmol/L (10-20); BUN (Urea Nitrogen) 22 mg/dL (9.8-20.1); Bilirubin, Total 0.7 mg/dL (0.2-1.2); CK (CPK) 52 U/L (29-168); Calc. Creatinine Clearance 0 mL/min (70-130); Carbon Dioxide 24 mmol/L (23-31); Chloride 103 mmol/L (98-107); Estimated GFR-MDRD 37; Globulin 3.1 g/dL (2.4-3.5); Glucose 104 mg/dL (83-110); Potassium 3.4 mmol/L (3.5-5.1); Protein, Total 6.9 g/dL (6.0-8.3); Sodium 135 mmol/L (136-145)
[2018-08-31 21:38] LABS: CKMB 0.8 ng/mL (0-6.6); Troponin I Less than 0.010 ng/mL (< 0.028)
--- NOTE | 2018-08-31 21:55 | RAD ---
PORTABLE CHEST: HISTORY: Syncope and collapse. COMPARISON: 04/13/2018 FINDINGS: Heart size is enlarged. There are atherosclerotic changes of the aorta. The lungs are clear of infi ltrates. There is scoliotic change of the spine. IMPRESSION: Marked cardiomegaly. POS: [facility]
--- NOTE | 2018-08-31 22:05 | CT ---
CT BRAIN PERFORMED WITHOUT CONTRAST ENHANCEMENT: HISTORY: Syncope. Headache. The patient is on Eliquis. FINDINGS: The ventricular and cisternal system is fairly unremarkable in appearance. Basal ganglia calcificati ons are noted. No signs of intracerebral hemorrhage or extraaxial fluid collections. The mastoid ai r cells and visualized sinuses are clear. IMPRESSION: No acute intracranial abnormalities. POS: [facility]
[2018-09-01 00:59] VITALS: BMI 22.6
[2018-09-01] MEDS ORDERED: Ondansetron HCl/PF 4 MG/2 ML Vial IVP PRN ×2 (01:08→06:17)
[2018-09-01] MEDS ORDERED: Ondansetron ODT 4 MG TAB SL PRN (01:08)
[2018-09-01] MEDS ORDERED: Acetaminophen 325 MG TAB PO PRN (01:08)
[2018-09-01 01:41] LABS: Troponin I Less than 0.010 ng/mL (< 0.028)
[2018-09-01 04:32] LABS: Troponin I Less than 0.010 ng/mL (< 0.028)
[2018-09-01] MEDS ORDERED: Ondansetron ODT 4 MG TAB PO PRN (06:17)
[2018-09-01] MEDS ORDERED: Famotidine 20 MG TAB PO PRN (06:17)
[2018-09-01] MEDS ORDERED: Acetaminophen 500 MG TAB PO PRN (06:17)
[2018-09-01] MEDS ORDERED: Bisacodyl 5 MG TAB PO PRN (06:17)
[2018-09-01] MEDS ORDERED: Docusate 100 MG CAP PO PRN (06:17)
[2018-09-01] MEDS ORDERED: Pepto Bismol Chew TAB PO PRN (06:17)
[2018-09-01] MEDS ORDERED: Levothyroxine Sodium 25 MCG TAB PO SCH (06:30)
[2018-09-01] MEDS: Potassium Chloride 20 MEQ TAB PO SCH (07:20)
[2018-09-01] MEDS: NS 0.9% w/ 40 MEQ KCL 1,000 ML IV SCH ×2 (07:20→16:11)
[2018-09-01] MEDS: Carvedilol 6.25 MG TAB PO SCH ×2 (07:21→16:11)
[2018-09-01 07:50] LABS: Bilirubin Negative (Negative); Blood, Urine Negative (Negative); Clarity CLEAR (Clear); Glucose, Urine (Dipstick) Negative (Negative); Leukocyte Negative (Negative); Nitrite Negative (Negative); Protein, Urine (Dipstick) Negative (Neg-Trace); Specific Gravity, Urine 1.014 (1.002-1.036); pH, Urine 6.5 (5.0-9.0)
[2018-09-01 07:52] LABS: Bacteria/HPF None Seen HPF (None Seen); Hyaline Casts/LPF 0-3 HYALINE CAST LPF (0-3 Hyaline); RBC/HPF 0-3 HPF (0-3); Squamous Epithelial 0-3 HPF (0-3); WBC/HPF 0-3 HPF (0-3)
[2018-09-01] MEDS: Atorvastatin Calcium 40 MG TAB PO SCH (09:19)
[2018-09-01] MEDS: Apixaban 2.5 MG TAB PO SCH ×2 (09:19→20:49)
[2018-09-01] MEDS: Lisinopril 10 MG TAB PO SCH (09:19)
--- NOTE | 2018-09-01 11:31 | ULT ---
CAROTID ULTRASOUND WITH MONTERO SCALE AND DOPPLER DUPLEX COLOR FLOW IMAGING SPECTRAL ANALYSIS PERFORMED: DATE: 09/01/18 CLINICAL INDICATION: Presyncope. FINDINGS: There is minimal intimal thickening/plaque formation. PEAK SYSTOLIC VELOCITY (CM/S): Right CCA 88 Left CCA 82 Right ICA 85 Left ICA 88 There is antegrade flow within the visualized bilateral vertebral arteries. IMPRESSION: 1. No hemodynamically significant stenosis of the right internal carotid artery. 2. No hemodynamically significant stenosis of the left internal carotid artery. POS: [facility]
[2018-09-01 14:14] LABS: Anion Gap 8 mmol/L (10-20); BUN (Urea Nitrogen) 17 mg/dL (9.8-20.1); Calc. Creatinine Clearance 38 mL/min (70-130); Calcium 8.7 mg/dL (7.8-10.44); Carbon Dioxide 25 mmol/L (23-31); Chloride 108 mmol/L (98-107); Estimated GFR-MDRD 51; Glucose 123 mg/dL (83-110); Potassium 4.4 mmol/L (3.5-5.1); Sodium 137 mmol/L (136-145)
--- NOTE | 2018-09-01 14:28 | HP ---
DATE OF SERVICE: 09/01/2018 PRIMARY CARE PHYSICIAN: Chino Dc M.D. CHIEF COMPLAINT: Presyncopal episode. HISTORY OF PRESENT ILLNESS: The patient apparently lives with daughter as supplemental caregiver, ex perienced a presyncopal episode, nearly blacked out, nearly fell down, suffered no injuries; however, ambulance was called out. The patient appeared dehydrated per EMS, was given fluids en route, was f ound to have acute kidney injury in the emergency department. The patient has a diagnosis of paroxys mal atrial fibrillation earlier this year or late last year, started on amiodarone and Eliquis and ma intained on Coreg, has been in sinus rhythm since starting antiarrhythmics. However, the patient has had several episodes of low heart rate and low blood pressure following changes to diet to no sodium , some fluid restriction, from the patient's diastolic heart failure. The patient has not had a grea t appetite, has not significantly eat anything, reports of losing double digit pounds in last 3-6 mon ths per daughter. The patient normally ambulates unassisted, has ambulated to the restroom since billy ng in the hospital here unassisted, is not in any current reported distress. REVIEW OF SYSTEMS: Denies any fevers and chills. Denies any vision changes. Denies any cough or sp utum production. Denies any diarrhea or constipation. Denies any lower extremity swelling, positive dizziness, presyncopal episode. Denies any chest pain or palpitations. Reports a good mood. No ap petite, however. Positive weight loss. ALLERGIES: No known drug allergies. PAST MEDICAL HISTORY: Hyperlipidemia, hypertension, paroxysmal atrial fibrillation, hypothyroidism. SOCIAL HISTORY: The patient is a nonsmoker, lives with daughter, . FAMILY HISTORY: Includes coronary artery disease and congestive heart failure in mother and father. HOME MEDICATIONS: Include furosemide 40 mg daily, potassium chloride 20 mEq daily, amiodarone 400 mg 1 tab p.o. b.i.d. per patient and daughter, may have been recently reduced by Cardiology on an outp atient basis. Eliquis 2.5 mg b.i.d., Synthroid 25 mcg daily, Lipitor 40 mg, lisinopril 10 mg, baby a spirin 81 mg. PAST SURGICAL HISTORY: The patient with cardiac ablation [place] [address] Sunshine's per review. T he patient with transesophageal echocardiogram 04/16/[address] Haider, showed moderate to se amanda mitral regurgitation, normal mitral valve, no thrombus present. Normal left systolic ejection f raction, mild aortic regurgitation. PHYSICAL EXAMINATION: VITAL SIGNS: Temperature 98.0, pulse of 50, respiratory rate of 16, oxygen saturation 98% on room ai r, blood pressure 125-166 systolic range, 60-68 diastolic range, presenting rhythm strip was sinus br adycardia to floor 55 rate. LABORATORY WORK: White blood cell count of 8.0, hemoglobin of 10.0, platelet count of 258. Troponin s x3 less than 0.01. Sodium 135, potassium of 3.4, BUN of 22, creatinine of 1.36, up from the patien t's normal baseline, glucose of 104, calcium of 9.0, AST 42, ALT of 50, alkaline phosphatase of 62, a lbumin of 3.8. Urinalysis fully normal. Following rehydration overnight, specific gravity is 1.01. Review of head CT in the emergency room, no acute intracranial abnormalities. Review of chest x-ray , cardiomegaly present. Clear lungs otherwise. PHYSICAL EXAMINATION: GENERAL: The patient is alert and oriented, no acute distress. HEENT: Normocephalic, atraumatic. Extraocular movements are intact. Sclerae are clear and white. Oral mucosa is currently moist this morning following rehydration overnight from IV fluids in the [facility] room on ambulance. NECK: Supple. HEART: Bradycardic, but regular rhythm. LUNGS: Clear to auscultation bilaterally. No rubs or wheezes. ABDOMEN: Soft, nontender, positive bowel sounds throughout. EXTREMITIES: Lower extremities without cyanosis or edema. NEUROLOGIC: The patient alert and oriented x3, no focal deficits. Speech is normal. ASSESSMENT AND PLAN: Presyncopal episode, acute kidney injury, diastolic heart failure, mitral regur gitation, paroxysmal atrial fibrillation, weight loss, unintentional hypothyroidism, hypokalemia. Gi indra patient's presyncopal episode, we will get carotids and given mitral regurgitation, we will take another look at echocardiogram and get Cardiology on calls recommendations for any further interventi on. We will hold amiodarone at this point in time as it sounds like they missed their outpatient Car diology appointment to discuss further decreases in amiodarone regarding the patient's heart rate and blood pressure dipping down in the past. We will continue patient's Eliquis for prophylaxis of clot formation and DVT. We will continue to replace and monitor the patient's potassium and electrolytes with another recheck of BMP this afternoon. We will continue IV fluids until acute kidney injury guy s resolved currently with 40 equivalents of potassium 100 an hour. We will hold diuretics until the patient is appropriately hydrated, recheck patient's thyroid status. Continue home medications other rodriguez including Coreg and levothyroxine 25 mcg, EDGARDO inhibitor 10 mg and statin. Given weight loss whi ch is thought to be secondary to patient's body not like shunting of blood to GI tract for larger ward ls as well as change to a no sodium, heart failure diet. We will follow up with Speech Therapy evalu ation to see if there is any dysfunction there. We can address, if not as instructed the patient to relax, dietary restrictions and eat smaller meals 5-6 times a day. Consider protein shake supplement ation. Given all these tests and rehydration, likely discharge tomorrow morning.
[2018-09-01 14:55] LABS: Free T4 (Free Thyroxine) 1.3 ng/dL (0.70-1.48); Thyroid Stimulating Hormone 1.2178 uIU/mL (0.35-4.94)
--- NOTE | 2018-09-01 15:06 | CON ---
DATE OF SERVICE: 09/01/2018 REASON FOR CONSULTATION: Syncope. PRIMARY CRYSTAL MOUNTER: Efrain Sunshine M.D. HISTORY OF PRESENT ILLNESS: Ms. Paul is a pleasant 82-year-old woman with previous history of paroxysmal atrial fibrillation in addition to mitral regurgitation, who recently presented with a syn copal-like episode. She states she did not completely lost consciousness. This was witnessed. She had garbled speech and was not particular per the daughter. No loss of bowel or bladder. States she regained normal consciousness within 5 minutes. No chest pain, pressure, shortness of breath or ass ociated symptoms. She has a previous history of mild to moderate coronary artery disease diagnosed i n 03/2018. She also has a previous ablation in addition to amiodarone and Coreg for the above. PAST MEDICAL HISTORY: Paroxysmal atrial fibrillation status post ablation, hyperlipidemia, hypertens ion, ablation of SVT, moderate to severe MR, AI. ALLERGIES: None. MEDICATIONS: Include Synthroid, aspirin, carvedilol 6.25 b.i.d., Eliquis 2.5 b.i.d., amiodarone 200 daily, lisinopril, Lipitor, potassium, and Lasix. SOCIAL HISTORY: No current tobacco or alcohol use. REVIEW OF SYSTEMS: Ten-point review of systems reviewed and as above, otherwise negative. PHYSICAL EXAMINATION: VITAL SIGNS: Blood pressure 139/61, pulse 86, temperature 98.5. GENERAL: Patient is a pleasant male/female who is in no acute distress. The patient appears his stated age. NEUROLOGIC: The patient is alert and oriented times 3 with no focal neurologic deficits. HEENT: Sclerae without icterus. Mouth has moist mucous membranes with normal pallor. NECK: No JVD. Carotid upstroke brisk. No bruits bilaterally. LUNGS: Clear to auscultation with unlabored respirations. BACK: No scoliosis or kyphosis. CARDIAC: Regular rate and rhythm with normal S1 and S2. No S3 or S4 noted. No significant rubs, murmurs, thrills, or gallops noted throughout the precordium. PMI is not displaced. There is no parasternal heave. ABDOMEN: Soft, nontender, nondistended. No peritoneal signs present. No hepatosplenomegaly. No abnormal striae. EXTREMITIES: 2+ femoral and 2+ dorsalis pedis pulses. No cyanosis, clubbing, or edema. SKIN: No gross abnormalities. PERTINENT LABS: White blood cell count 8.0, hemoglobin 10, platelet count 258, creatinine 1.04, sodi um 137. EKG normal sinus rhythm, normal EKG. IMPRESSION: 1. Presyncope. 2. Paroxysmal atrial fibrillation. 3. Mild to moderate coronary artery disease. RECOMMENDATIONS: Etiology is currently unknown. She is currently on Lasix. She may have been volum e contracted. She may also develop bradycardia due to Coreg and amiodarone. She has no signs or sym ptoms currently of significant bradycardia. At this point, continue close observation. Last echo in the office dated 06/2018 with normal LVEF. We would not recommend repeating her echo. We will monit or overnight. Further recommendations per Dr. Efrain Sunshine in a.m.
[2018-09-02] MEDS: NS 0.9% w/ 40 MEQ KCL 1,000 ML IV SCH (02:46)
[2018-09-02 04:48] LABS: Anion Gap 11 mmol/L (10-20); BUN (Urea Nitrogen) 15 mg/dL (9.8-20.1); Calc. Creatinine Clearance 45 mL/min (70-130); Calcium 8.5 mg/dL (7.8-10.44); Carbon Dioxide 19 mmol/L (23-31); Chloride 111 mmol/L (98-107); Estimated GFR-MDRD 61; Glucose 89 mg/dL (83-110); Potassium 4.9 mmol/L (3.5-5.1); Sodium 136 mmol/L (136-145)
[2018-09-02] MEDS ORDERED: Levothyroxine Sodium 50 MCG TAB PO SCH (06:00)
[2018-09-02] MEDS ORDERED: Levothyroxine Sodium 25 MCG TAB PO SCH (06:00)
[2018-09-02] MEDS: Apixaban 2.5 MG TAB PO SCH (10:00)
[2018-09-02] MEDS: Lisinopril 10 MG TAB PO SCH (10:00)
[2018-09-02] MEDS: Carvedilol 6.25 MG TAB PO SCH (10:00)
[2018-09-02] MEDS: Potassium Chloride 20 MEQ TAB PO SCH (10:00)
[2018-09-02] MEDS: Atorvastatin Calcium 40 MG TAB PO SCH (10:04)
[2018-09-02 12:27] VITALS: BP 146/70; TEMP 97.6
--- NOTE | 2018-09-02 13:34 | DIS ---
DATE OF ADMISSION: 08/31/2018 DATE OF DISCHARGE: 09/02/2018 CHIEF COMPLAINT: Presyncopal episode. HISTORY OF PRESENT ILLNESS: The patient did not formally fully pass out; however, was unable to spea k and with some atypical movements not consistent fully with a seizure or stroke, was worrisome enoug h for the patient's daughter who is primary caregiver for the patient to transport her to the emergen cy department. She was found to be dehydrated, slightly hypotensive. The patient with baseline betina ycardia following initiation of Coreg and amiodarone for atrial fibrillation. The patient was chemic ally converted into sinus rhythm with those prior to this year. Troponins showed the patient not to be of any concern of acute myocardial infarction. Potassium was replaced. The patient's free T3 was slightly low. Increased the patient's home levothyroxine to 50 mcg. Initially held amiodarone and Lasix while inpatient; however, restart as the patient goes home. Cardiology was consulted. Dr. Fernanda cross recommends an event monitor with follow up with Dr. Sunshine an outpatient basis. Patient has appointment already on the of this month. Will follow up with patient's PCP, Dr. Chino Dc in 7-10 days. DISCHARGE MEDICATIONS: Include Klor-Con 20 mEq 1 tab p.o. daily, lisinopril 10 mg 1 tab p.o. daily, levothyroxine increased to 50 mcg 2 tabs 25 mcg p.o. daily, Lasix 40 mg 1 tab p.o. daily, carvedilol 6.25 mg b.i.d., Eliquis 2.5 mg b.i.d., atorvastatin 40 mg 1 tab p.o. at bedtime, amiodarone 200 mg 1 tab p.o. daily. DISCHARGE DIET: Heart healthy, may relax on the sodium restriction. Eat occasional fried chicken an d ice cream. Patient's swallow with speech therapy was intact. DISCHARGE ACTIVITY: As tolerated. FOLLOWUP: Follow up with your care provider if any further syncopal episode of presyncope occurs. DISCHARGE CONDITION: Fair. STUDIES REVIEWED: Carotid Doppler without significant stenosis. Brain CT without acute events. Tami st x-ray with cardiomegaly.
[2018-09-02] MEDS ORDERED: Atorvastatin Calcium 40 MG TAB PO SCH (21:00)
--- NOTE | 2018-09-04 08:50 | CON ---
DATE OF SERVICE: 09/02/2018 Ms. Paul is doing well, no episodes of dysrhythmia is present on a 24-hour monitoring. No recu rrent episodes of syncope. PHYSICAL EXAMINATION: VITAL SIGNS: Blood pressure 146/70, pulse 60, temperature 97.6. LUNGS: Clear to auscultation. CARDIAC: Regular rate and rhythm. ABDOMEN: Soft, nontender, nondistended. EXTREMITIES: No edema. IMPRESSION: Syncope. RECOMMENDATIONS: At this point, etiology is unknown. Her overall LVEF appears normal. Would recomm end a 3-week event recorder with outpatient followup with Dr. Efrain Sunshine.
--- NOTE | 2018-09-07 10:48 | EKG ---
Test Reason : Blood Pressure : / mmHG Vent. Rate : 059 BPM Atrial Rate : 059 BPM P-R Int : 192 ms QRS Dur : 094 ms QT Int : 494 ms P-R-T Axes : 073 024 -09 degrees QTc Int : 489 ms Sinus bradycardia Otherwise normal ECG Confirmed by ANDREI ROJAS ([id number]), editor book TOM TARANGO ([id number]) on 09/07/2018 10:48:31 AM Referred By: Confirmed By:ANDREI ROJAS
== END 2018-09-02 13:53 | disposition home or self-care (01) ==
LOC: ERS 20:36 → 2SW 23:35
PROVIDERS: ADMIT Family Medicine; ATTEND Family Medicine
DX: R55 Syncope and collapse (principal); N17.9 Acute kidney failure, unspecified; I50.30 Unspecified diastolic (congestive) heart failure; I48.0 Paroxysmal atrial fibrillation; E78.5 Hyperlipidemia, unspecified; E03.9 Hypothyroidism, unspecified; I34.0 Nonrheumatic mitral (valve) insufficiency; E87.6 Hypokalemia; I25.10 Atherosclerotic heart disease of native coronary artery without angina pectoris; R63.4 Abnormal weight loss; Z68.22 Body mass index [BMI] 22.0-22.9, adult; Z79.01 Long term (current) use of anticoagulants; Z79.82 Long term (current) use of aspirin; Z79.899 Other long term (current) drug therapy
CPT/HCPCS: 70450; 71045; 80048 ×2; 80053; 81001; 82550; 82553; 84439; 84443; 84481; 84484 ×3; 85025; 93005; 93306; 93880; 96361 ×2; 96374; 99285; G0378 ×2; 36415; G8996-GN-CH; G8997-GN-CH; G8998-GN-CH; J2405

== ENCOUNTER 2019-02-05 11:35 | Inpatient (IN) | payer MEDICARE ==
[2019-02-05 12:13] LABS: #Basophils 0.1 thou/uL (0.0-0.2); #Eosinphils 0.1 thou/uL (0.0-0.7); #Lymphocytes 1.4 thou/uL (1.20-3.40); #Monocytes 0.7 thou/uL (0.11-0.59); #Neutrophils 4.7 thou/uL (1.40-6.50); %Basophils 1.1 % (0.0-1.0); %Eosinophils 1.2 % (0.0-10.0); %Lymphocytes 20.1 % (21.0-51.0); %Monocytes 10.3 % (0.0-10.0); %Neutrophils 67.4 % (42.0-75.0); Hemoglobin 5.5 g/dL (12.0-16.0); Mean Corpuscular HGB CONC 32.4 g/dL (32.0-36.0); Mean Corpuscular Hemoglobin 29.4 pg (27.0-31.0); Mean Corpuscular Volume 90.8 fL (78.0-98.0); Mean Platelet Volume 8.2 fL (7.4-10.4); Platelet Count 270 thou/uL (130-400); RBC Distribution Width 14.7 % (11.5-14.5); Red Blood Cell (RBC) Count 1.86 mill/uL (4.20-5.40)
[2019-02-05 12:31] LABS: ALT (SGPT) 56 U/L (8-55); AST (SGOT) 49 U/L (5-34); Albumin 3.6 g/dL (3.4-4.8); Alkaline Phosphatase 61 U/L (40-150); Anion Gap 9 mmol/L (10-20); BUN (Urea Nitrogen) 28 mg/dL (9.8-20.1); Bilirubin, Total 0.4 mg/dL (0.2-1.2); Calc. Creatinine Clearance 0 mL/min (70-130); Calcium 8.6 mg/dL (7.8-10.44); Carbon Dioxide 27 mmol/L (23-31); Chloride 100 mmol/L (98-107); Estimated GFR-MDRD 53; Globulin 2.8 g/dL (2.4-3.5); Glucose 104 mg/dL (83-110); Protein, Total 6.4 g/dL (6.0-8.3); Sodium 132 mmol/L (136-145)
[2019-02-05] MEDS ORDERED: Ondansetron PF 4 MG/2 ML Vial IVP PRN (13:18)
[2019-02-05] MEDS ORDERED: Acetaminophen 325 MG TAB PO PRN (13:18)
[2019-02-05] MEDS ORDERED: Pantoprazole 40 MG VIAL ONE (13:52)
--- NOTE | 2019-02-05 14:46 | RAD ---
PORTABLE CHEST 1 VIEW: Date: 02/05/19 Time: 1328 hours HISTORY: Syncope. FINDINGS: Comparison made with exam of 08/31/18. The heart size is enlarged. No focal areas of consolidation, pneumothoraces, christos pulmonary edema, o r pleural effusions are seen. The aorta is tortuous. IMPRESSION: No acute process. POS: [facility]
[2019-02-05 15:04] LABS: Bilirubin Negative (Negative); Blood, Urine Negative (Negative); Clarity CLEAR (Clear); Glucose, Urine (Dipstick) Negative (Negative); Leukocyte Negative (Negative); Nitrite Negative (Negative); Protein, Urine (Dipstick) Negative (Neg-Trace); Specific Gravity, Urine 1.008 (1.002-1.036); Urobilinogen 0.2 mg/dL (0.2-1.0); pH, Urine 6.5 (5.0-9.0)
[2019-02-05] MEDS: Sodium Chloride 0.9% 1,000 ML IV SCH (17:29)
--- NOTE | 2019-02-05 19:00 | CON ---
DATE OF CONSULTATION: 02/05/2019 REASON FOR CONSULTATION: Severe anemia. HISTORY: Ms. Paul is an 83-year-old female, who was admitted from Dr. Butler's office earlier today. While getting blood in his office, the patient passed out. The patient was subsequently transferred to the ER. Her blood count demonstrates severe anemia with a hemoglobin of 5.5. Currently, she feels fine without any specific symptoms. On further questioning, she relates having feeling "drained" for the last couple of weeks. She denies any palpitation; however, she would get lightheaded with standing. The patient has not noted any overt bleeding such as melena, hematochezia, rectal bleeding. She denies having had any previous peptic ulcer disease. She is not on any ulcerogenic medication. The patient has not had any previous colonoscopy. PAST MEDICAL HISTORY: 1. Hypothyroidism. 2. Paroxysmal atrial fibrillation. 3. Hypertension. 4. Hyperlipidemia. 5. Chronic kidney disease. 6. History of mitral regurgitation. ALLERGIES: NONE. MEDICATIONS: Medications at home include; 1. Lisinopril 10 mg daily. 2. Synthroid 50 mcg daily. 3. Lasix 40 mg daily. 4. Coreg 6.25 mg b.i.d. 5. Lipitor 40 mg at bedtime. 6. Aspirin 81 mg daily. 7. Plavix daily. SOCIAL HISTORY: The patient is , lives by herself. Has good family support with son and daughter. No tobacco or alcohol usage. FAMILY HISTORY: Negative for any known GI problem, liver disease, or GI malignancy. REVIEW OF SYSTEMS: 10-point review of systems did not show any other pertinent positives or negatives. PHYSICAL EXAMINATION: VITAL SIGNS: Temperature is 98.2, blood pressure 110/78, pulse of 80. GENERAL: She is alert, conversant, no distress. HEENT: Shows anicteric sclerae, but pale. Oropharynx clear. NECK: Supple. CV: Shows normal S1 and S2. Regular rate and rhythm. CHEST: Shows breath sounds. ABDOMEN: Soft, nontender, good bowel sounds. No bruit. No distention. No tympany. There is no organomegaly. EXTREMITIES: Show no edema. Stool Hemoccult in the ER was negative. LABORATORY DATA: WBCs 7.0, hemoglobin 5.5, hematocrit 16.9, and platelet count of 270. Sodium 132, potassium 4.0, chloride 100, CO2 of 27, creatinine 1.01, bilirubin 0.4, AST is 49, ALT is 56, alkaline phosphatase 61. ASSESSMENT: The patient presents with severe anemia with hemoglobin of 5.5 without any overt bleeding. There is no evidence of occult blood in the ER today; however, she has not had any previous GI tract evaluation or colon screening. An occult GI blood loss will need to be excluded in her age group. RECOMMENDATIONS: 1. Transfuse today to bring her hemoglobin to 7 or above. 2. We will start bowel prep tomorrow with subsequent EGD and colonoscopy. 3. Further recommendation to follow pending above findings. Job ID: [id number] MTDD
[2019-02-05] MEDS: Carvedilol 6.25 MG TAB PO SCH (20:38)
[2019-02-05] MEDS: Famotidine/PF 20 mg/2ml Vial SLOW IVP SCH (20:38)
[2019-02-05 21:32] VITALS: BMI 21.6
--- NOTE | 2019-02-05 23:46 | HP ---
HISTORY OF PRESENT ILLNESS: This is an 83-year-old white female, with a history of SVT, hypothyroidism, cardiac dysrhythmia, who presents with weakness. The patient and the daughter were present. They state that over the past 2 to 3 weeks, she has become increasingly weak and fatigued. Unable to walk very far. Having more and more of leg cramps and spasms. No blood noted in the stools. Presently, is on aspirin 81 daily and Eliquis 2.5 twice a day for heart issues. The last pertinent x-rays include a CT abdomen and pelvis which was normal back in 2014. Her last colonoscopy has been many years. PAST MEDICAL HISTORY: Hypothyroidism, SVT, hypertension, hyperlipidemia, chronic combined systolic and diastolic heart failure, paroxysmal atrial fibrillation, and mild coronary artery disease. PAST SURGICAL HISTORY: Include cardiac ablation in 2002, llcqjbzy-qy-aeyvbx aortic regurgitation with an ejection fraction of 55% to 60% in 2007. Echo in June 2018 showed ejection fraction of 55% to 60% with severe mitral valve regurgitation and bkxqouov-ob-hnljov aortic valve regurgitation and severe tricuspid valve regurgitation. FAMILY HISTORY: Father at 72 with [place]. Mother at 93 with heart failure. Sister with breast cancer. Brother with throat cancer. SOCIAL HISTORY: She is nonsmoker. She is a housewife for many years. She enjoys playing bridge and watching her 2 grandsons. She is . She does have 4 girls and 1 son. MEDICATIONS: 1. Aspirin 81 daily. 2. Lisinopril 10 daily. 3. Lipitor 80 daily. 4. Eliquis 2.5 b.i.d. 5. Amiodarone 200 daily. 6. Carvedilol 6.25 b.i.d. 7. Lasix 40 daily. 8. Potassium 20 daily. 9. Synthroid 50 daily. ALLERGIES: NONE. REVIEW OF SYSTEMS: As above. PHYSICAL EXAMINATION: VITAL SIGNS: Weight 121, blood pressure 106/52, heart rate 70, pulse ox 99. GENERAL: The patient appears very pale with more than likely severe anemia. HEENT: Sclerae very pale. HEENT otherwise clear. NECK: Supple. HEART: Regular rate and rhythm without murmur. LUNGS: Clear. ABDOMEN: Soft, nontender. EXTREMITIES: With no edema. NEUROLOGICAL: Intact. ASSESSMENT: 1. Severe pallor with hemoglobin found to be 5.5. 2. Combined systolic and diastolic congestive heart failure. 3. Paroxysmal atrial fibrillation. 4. Hypertension. 5. Hyperlipidemia. PLAN: 1. Admit. 2. Transfuse 2 units packed red blood cells. 3. Guaiac additional stools. 4. Suspect the most common cause of her anemia is most likely from her aspirin and Eliquis, although her Hemoccult was negative. Must definitely rule out malignancy. We will obtain a GI consult. 5. The patient is a full code. 6. We will continue to follow and do serial H and H. Job ID: [id number]
[2019-02-06] MEDS: Levothyroxine Sodium 50 MCG TAB PO SCH (05:46)
[2019-02-06 06:32] LABS: #Eosinphils 0.2 thou/uL (0.0-0.7); #Lymphocytes 1.5 thou/uL (1.20-3.40); #Monocytes 0.8 thou/uL (0.11-0.59); #Neutrophils 5.7 thou/uL (1.40-6.50); %Basophils 0.4 % (0.0-1.0); %Eosinophils 2.5 % (0.0-10.0); %Lymphocytes 18.7 % (21.0-51.0); %Monocytes 9.3 % (0.0-10.0); Hemoglobin 6.7 g/dL (12.0-16.0); Mean Corpuscular HGB CONC 33.2 g/dL (32.0-36.0); Mean Corpuscular Hemoglobin 29.4 pg (27.0-31.0); Mean Corpuscular Volume 88.4 fL (78.0-98.0); Mean Platelet Volume 8.5 fL (7.4-10.4); Platelet Count 212 thou/uL (130-400); RBC Distribution Width 14.2 % (11.5-14.5); Red Blood Cell (RBC) Count 2.27 mill/uL (4.20-5.40); White Blood Cell (WBC) Count 8.2 thou/uL (4.8-10.8)
[2019-02-06 06:51] LABS: Anion Gap 10 mmol/L (10-20); BUN (Urea Nitrogen) 20 mg/dL (9.8-20.1); Calc. Creatinine Clearance 41 mL/min (70-130); Calcium 8.2 mg/dL (7.8-10.44); Carbon Dioxide 23 mmol/L (23-31); Chloride 106 mmol/L (98-107); Estimated GFR-MDRD 60; Glucose 92 mg/dL (83-110); Potassium 4.2 mmol/L (3.5-5.1); Sodium 135 mmol/L (136-145)
[2019-02-06] MEDS: Potassium Chloride 20 MEQ TAB PO SCH (09:45)
[2019-02-06] MEDS: Furosemide 40 MG TAB PO SCH (09:45)
[2019-02-06] MEDS: Amiodarone 200 MG TAB PO SCH (09:45)
[2019-02-06] MEDS: Atorvastatin Calcium 40 MG TAB PO SCH (09:45)
[2019-02-06] MEDS: Carvedilol 6.25 MG TAB PO SCH ×2 (09:46→17:35)
[2019-02-06] MEDS: Famotidine/PF 20 mg/2ml Vial SLOW IVP SCH ×2 (09:46→20:51)
[2019-02-06] MEDS: Lisinopril 10 MG TAB PO SCH (09:46)
--- NOTE | 2019-02-06 10:12 | CON ---
DATE OF CONSULTATION: 02/06/2019 TIME: 8:30 a.m. SUBJECTIVE: The patient is feeling much better this morning. She has much better color this morning. Weakness and fatigue have improved remarkably. OBJECTIVE: VITAL SIGNS: Temperature 98.8, pulse 63, respirations 20, pulse ox 98, blood pressure 109/57. HEART: Regular rate and rhythm. LUNGS: Clear. ABDOMEN: Soft. EXTREMITIES: With no edema. LABORATORY DATA: White count 8.2, H and H 6.7 and 20.0, and platelet of 212. Sodium 135, potassium 4.2, creatinine 0.9, BUN 20. Urine clear. ASSESSMENT: 1. Severe anemia, possibly related to blood loss secondary to aspirin and Plavix. Her hemoccult is negative. 2. Combined systolic and diastolic congestive heart failure, stable. 3. Paroxysmal atrial fibrillation, stable. 4. Hypertension. 5. Hyperlipidemia. PLAN: 1. Transfuse an additional 1 unit packed red blood cells today. Recheck labs in a.m. 2. Probable bowel prep today for EGD/colonoscopy in the a.m. by Dr. Ellsworth. 3. Full code. Job ID: [id number]
--- NOTE | 2019-02-06 15:56 | PRG ---
DATE OF SERVICE: 02/06/2019 SUBJECTIVE: The patient feels better. She received her third unit of RBC transfusion. There is no nausea, vomiting, or abdominal pain. No overt bleeding. PHYSICAL EXAMINATION: VITAL SIGNS: Temperature is 98.4, blood pressure 88/54 after one unit transfusion, and pulse 64. GENERAL: She is alert, conversant, in no distress. HEENT: Shows anicteric sclerae. NECK: Supple. CV: Shows normal S1 and S2. Regular rate and rhythm. CHEST: Shows breath sounds. ABDOMEN: Soft. No distention. No tympany. She has active bowel sounds. No tenderness. EXTREMITIES: Shows no edema. LABORATORY DATA: Hemoglobin 6.7 after 2 units of RBC transfusion, WBCs 8.2, and platelet count of 212. Electrolytes within normal range. Creatinine 0.90. ASSESSMENT: Severe anemia with hemoglobin of 5.5 on admission, no signs of overt bleeding with heme-negative stool in the ER. Status post transfusion with clinical improvement. RECOMMENDATIONS: The patient is ready to proceed with endoscopy with sedation. We will proceed with bowel prep tonight for EGD and colonoscopy tomorrow. Job ID: [id number]
[2019-02-06] MEDS ORDERED: GoLYTELY 4,000 ml Bottle PO SCH (16:00)
[2019-02-06 17:17] LABS: #Basophils 0.1 thou/uL (0.0-0.2); #Eosinphils 0.3 thou/uL (0.0-0.7); #Lymphocytes 1.8 thou/uL (1.20-3.40); #Neutrophils 5.3 thou/uL (1.40-6.50); %Basophils 0.8 % (0.0-1.0); %Eosinophils 3.1 % (0.0-10.0); %Lymphocytes 21.3 % (21.0-51.0); %Monocytes 11.5 % (0.0-10.0); %Neutrophils 63.3 % (42.0-75.0); Hemoglobin 8.5 g/dL (12.0-16.0); Mean Corpuscular HGB CONC 32.6 g/dL (32.0-36.0); Mean Corpuscular Hemoglobin 29.3 pg (27.0-31.0); Mean Corpuscular Volume 89.8 fL (78.0-98.0); Mean Platelet Volume 8.4 fL (7.4-10.4); Platelet Count 229 thou/uL (130-400); RBC Distribution Width 14.2 % (11.5-14.5); White Blood Cell (WBC) Count 8.4 thou/uL (4.8-10.8)
[2019-02-06] MEDS: Sodium Chloride 0.9% 1,000 ML IV SCH (17:34)
[2019-02-07 05:44] LABS: #Eosinphils 0.1 thou/uL (0.0-0.7); #Lymphocytes 1.7 thou/uL (1.20-3.40); #Monocytes 0.8 thou/uL (0.11-0.59); %Basophils 0.6 % (0.0-1.0); %Eosinophils 1.7 % (0.0-10.0); %Lymphocytes 19.2 % (21.0-51.0); %Monocytes 9.4 % (0.0-10.0); %Neutrophils 69.1 % (42.0-75.0); Hemoglobin 7.5 g/dL (12.0-16.0); Mean Corpuscular HGB CONC 32.1 g/dL (32.0-36.0); Mean Corpuscular Hemoglobin 29.1 pg (27.0-31.0); Mean Corpuscular Volume 90.5 fL (78.0-98.0); Mean Platelet Volume 8.5 fL (7.4-10.4); Platelet Count 210 thou/uL (130-400); RBC Distribution Width 14.6 % (11.5-14.5); Red Blood Cell (RBC) Count 2.57 mill/uL (4.20-5.40); White Blood Cell (WBC) Count 8.6 thou/uL (4.8-10.8)
[2019-02-07 06:05] LABS: ALT (SGPT) 78 U/L (8-55); AST (SGOT) 69 U/L (5-34); Albumin 2.9 g/dL (3.4-4.8); Alkaline Phosphatase 56 U/L (40-150); Anion Gap 11 mmol/L (10-20); BUN (Urea Nitrogen) 17 mg/dL (9.8-20.1); Bilirubin, Total 0.8 mg/dL (0.2-1.2); Calc. Creatinine Clearance 41 mL/min (70-130); Carbon Dioxide 26 mmol/L (23-31); Chloride 104 mmol/L (98-107); Estimated GFR-MDRD 59; Globulin 2.3 g/dL (2.4-3.5); Glucose 85 mg/dL (83-110); Potassium 3.7 mmol/L (3.5-5.1); Protein, Total 5.2 g/dL (6.0-8.3); Sodium 137 mmol/L (136-145)
[2019-02-07] MEDS: Levothyroxine Sodium 50 MCG TAB PO SCH (06:26)
[2019-02-07] MEDS: Sodium Chloride 0.9% 1,000 ML IV SCH (06:26)
[2019-02-07] MEDS: Carvedilol 6.25 MG TAB PO SCH ×2 (08:42→17:32)
--- NOTE | 2019-02-07 10:43 | CON ---
DATE OF CONSULTATION: 02/07/2019 SUBJECTIVE: The patient is doing well this morning. No complaints of chest pain or shortness of breath. OBJECTIVE: VITAL SIGNS: Temperature 97.4, pulse 61, respirations 20, pulse ox 99, blood pressure 110/55. GENERAL: The patient does appear pale this morning. HEART: Regular rhythm. LUNGS: Clear. ABDOMEN: Soft. EXTREMITIES: With no edema. LABORATORY DATA: White count 8.6, H and H is down from 8.5 to 7.5 and 26.1 to 23.2. Additional blood occult testing have all been negative. ASSESSMENT: 1. Severe anemia, possibly related to blood loss. However, multiple occult blood tests have been negative. 2. Combined systolic and diastolic congestive heart failure, stable. 3. Paroxysmal atrial fibrillation, stable. 4. Hypertension. 5. Hyperlipidemia. PLAN: 1. Consult Dr. Sunshine for assistance with aspirin and Eliquis. 2. EGD and colonoscopy this a.m. 3. Full code. 4. We will continue to follow. Job ID: [id number]
[2019-02-07] MEDS ORDERED: Lidocaine 1% PF 5 ML VIAL ONE (13:53)
[2019-02-07] MEDS ORDERED: PROPOFOL 200 MG/20 ML VIAL ONE (13:53)
[2019-02-07] MEDS ORDERED: Promethazine HCl 25 MG/ML VIAL SLOW IVP PRN (14:13)
[2019-02-07] MEDS ORDERED: Promethazine HCl 25 MG/ML VIAL IM PRN (14:13)
[2019-02-07] MEDS ORDERED: Ondansetron HCl/PF 4 MG/2 ML Vial IVP PRN (14:13)
--- NOTE | 2019-02-07 15:02 | OP ---
DATE OF PROCEDURE: 02/07/2019 PROCEDURES PERFORMED: Esophagogastroduodenoscopy with biopsy and colonoscopy. PREOPERATIVE DIAGNOSIS: Iron-deficiency anemia on chronic anticoagulation. DESCRIPTION OF PROCEDURE: Informed consent was obtained from the patient. She was sedated with total intravenous anesthesia. The bite block was placed, and the endoscope was advanced easily to the second portion of the duodenum and retroflexion was performed in the stomach. The esophagus was normal. The GE junction was normal. The stomach was normal including retroflexed views. The pylorus and first and second portions of the duodenum were normal. Biopsies were obtained from the duodenum to rule out celiac disease. The patient was turned around. Rectal exam was performed and was normal. The colonoscope was advanced to the terminal ileum without difficulty. The mucosa of the terminal ileum was normal. The preparation quality was adequate. The ileocecal valve and appendiceal orifice were clearly identified. There was severe diverticulosis of the left colon. The remainder of the colonic mucosa was normal. Retroflexed views in the rectum were normal. IMPRESSION: 1. Normal esophagogastroduodenoscopy. Duodenal biopsies taken to rule out celiac disease. 2. Severe diverticulosis throughout the left colon. 3. Otherwise normal ileocolonoscopy. RECOMMENDATIONS: 1. Await histopathology. 2. Consider outpatient capsule endoscopy. 3. We would hold Yulietquis for now. However, she is not currently having overt bleeding and if capsule endoscopy is to be performed, it might be helpful to actually perform this on [facility] to help highlight any potential bleeding source. 4. Iron supplementation. Job ID: [id number]
[2019-02-07] MEDS: Furosemide 40 MG TAB PO SCH (15:33)
[2019-02-07] MEDS: Atorvastatin Calcium 40 MG TAB PO SCH (15:33)
[2019-02-07] MEDS: Potassium Chloride 20 MEQ TAB PO SCH (15:33)
[2019-02-07] MEDS: Lisinopril 10 MG TAB PO SCH (15:33)
[2019-02-07] MEDS: Amiodarone 200 MG TAB PO SCH (15:33)
[2019-02-07] MEDS: Famotidine/PF 20 mg/2ml Vial SLOW IVP SCH ×2 (15:33→20:48)
--- NOTE | 2019-02-07 21:31 | CON ---
DATE OF CONSULTATION: HISTORY OF PRESENT ILLNESS: Jen Paul is an 83-year-old white female initially evaluated in October 2002. At that time, she gave a 2-3 year history of intermittent rapid heartbeat, which she tended to ignore. She later had another episode, where she had weakness, poor energy level, headache and some lightheadedness. She continued to feel bad the following day and ultimately went to see Dr. Dc. She was found to have very rapid heart beat and was sent to the emergency room. She denied any chest discomfort or shortness of breath. She was in supraventricular tachycardia with a rate of 177 per minute. She was given adenosine 6 mg followed by a second 6 mg bolus, and her heart rate gradually slowed. She was started on intravenous Cardizem 20 mg IV bolus and 10 mg/hour drip and converted to sinus rhythm. She was seen by Dr. Yovani Merchant. Since this was right before [place], it was felt she could be discharged. She came back 1 week later, underwent ablation of the supraventricular tachycardia (A-V cathy reentry). She has not had any significant heart rate elevation like that since. She also was followed periodically with echocardiograms due to valvular heart disease. In April 2003, she had moderate mitral regurgitation, mild aortic insufficiency. This continued to gradually worsen and then in July 2006, she had osbacmiz-pe-rkfiju mitral regurgitation and buujchby-iy-hywyep aortic insufficiency. Her blood pressure is elevated that day, which may have contributed to her valvular abnormalities on that echo. She was hospitalized in April 2007 with lower abdominal pain as well as chest pressure and nausea. Cardiac enzymes were unremarkable. She underwent adenosine Cardiolite testing, which revealed no evidence of ischemia. Ejection fraction on echo was 55% to 60% with pkbrkoax-fg-hkbuwq aortic insufficiency, qiklzurd-tq-chcdmk mitral regurgitation. She has continued to be followed for valvular abnormalities and in general, has been asymptomatic. She was placed on increased dose of lisinopril for hypertension. In April 2017, ejection fraction was 55% to 60% with moderate mitral regurgitation, aortic valvular sclerosis, rfurttrh-fe-uzxwxe aortic regurgitation, moderate tricuspid regurgitation, and mild pulmonic insufficiency. She is doing well until February 2018, which began to notice exertional dyspnea as well as some episodes of PND. At times, she would feel short of breath, had a slight pressure of the lower part of her sternum. Due to having increasing weakness, she went to the emergency room. She was found to be in atrial fibrillation with fast ventricular response and was placed on Cardizem drip. Her rate slowed into the 80s/90s. Cardiac enzymes were unremarkable. She was diuresed and she was placed on Lovenox 1 mg/kg b.i.d. On echocardiogram, ejection fraction fallen to 40% to 45%. She had elevated liver function tests, which were felt to be due to hepatic congestion. Echo also showed severe mitral regurgitation and moderate aortic insufficiency. She was started on IV amiodarone and the following day, underwent CASSANDRA cardioversion. There is ilknlhdl-nn-gehpmh mitral regurgitation with no evidence of intracardiac thrombus. She then underwent electrical cardioversion and went back to sinus rhythm. It was recommended that she undergo cardiac catheterization several days after the cardioversion. She was found to have a wedge pressure of 11, cardiac output 2.34 L/minute. There was mild left ventricular hypokinesis with ejection fraction of 40% to 45% and severe mitral regurgitation. There was 20% proximal LAD, 30% mid LAD, and 20% first diagonal stenosis. The circumflex has 20% stenosis in the first obtuse marginal and the right coronary artery had a 20% mid stenosis. She was seen in consultation by cardiac surgery and consideration was given to possible MitraClip, however, that never has recurred. In August 2018, she was admitted with a near syncopal episode. She was sent home with an event monitor, which did not have any significant arrhythmias. She was last seen in the office on December 10, overall feeling well. She now is admitted with weakness and fatigue. She denies any significant shortness of breath or chest discomfort. At home, she was so weak that she is unable to walk. She was taking Eliquis 2.5 mg b.i.d. She was found to have a hemoglobin of 5.5 and was admitted and has been transfused. She had undergone EGD and colonoscopy. EGD was normal. She had severe diverticulosis throughout the colon, but no overt bleeding. PAST MEDICAL HISTORY: Hypothyroidism, hypercholesterolemia, hypertension, valvular heart disease, and history of supraventricular tachycardia status post ablation. PAST SURGICAL HISTORY: Ablation of her supraventricular tachycardia. MEDICATIONS: 1. Amiodarone 200 mg daily. 2. Eliquis 2.5 mg b.i.d. 3. Aspirin 81 daily. 4. Lipitor 40 mg daily. 5. Carvedilol 6.25 b.i.d. 6. Furosemide 40 daily. 7. Levothyroxine 50 mcg daily. 8. Lisinopril 10 mg daily. 9. Potassium 20 daily. ALLERGIES: NONE. SOCIAL HISTORY: She does not smoke or drink. She is , lives alone. FAMILY HISTORY: Father of myocardial infarction at age 72. REVIEW OF SYSTEMS: A 10-point review of systems is otherwise unremarkable. PHYSICAL EXAMINATION: VITAL SIGNS: Blood pressure 121/59 and pulse of 57. HEENT: PERRL. NECK: Supple. CHEST: Clear. CARDIAC: S1 and S2 normal without any S3 or S4. There is 1-2/6 holosystolic murmur at the apex and along the left lower sternal border. Carotid upstrokes normal without bruits. ABDOMEN: Normal bowel sounds without tenderness or organomegaly. EXTREMITIES: Revealed no clubbing, cyanosis, or edema. NEUROLOGIC: Grossly intact. SKIN: Warm and dry. LABORATORY DATA: EKG reveals sinus bradycardia, otherwise unremarkable. Hemoglobin 5.5 on admission, is now 7.5, hematocrit 23.2, white count 8600, platelets 210,000. Sodium 137, potassium 3.7, chloride 104, carbon dioxide 26, BUN 17, and creatinine 0.91. IMPRESSION: 1. Gastrointestinal bleed while on Eliquis 2.5 b.i.d. 2. History of chronic systolic and diastolic heart failure. 3. New onset of atrial fibrillation in March 2018. She underwent amiodarone infusion and an elective cardioversion. 4. Mbeeurkn-yd-yaapkf mitral regurgitation, moderate aortic insufficiency. 5. Hypertension. 6. Hyperlipidemia. 7. Positive family history. 8. Elevated liver function test in the past, probably due to hepatic congestion. 9. History of supraventricular tachycardia ablation in October 2002. PLAN: Ms. Paul will need to have her anticoagulation held certainly at this time. She has continued to maintain sinus rhythm on amiodarone after she underwent electrical cardioversion in March 2018. She has not had any documented recurrence of atrial fibrillation since that time. Further thought will be given to resuming the Eliquis at a later time. However, this certainly would be with increased recurrence of bleeding risk. At the present time, however, I would definitely keep her off the Xarelto at a very minimal 1 to 2 weeks. Job ID: [id number]
[2019-02-08] MEDS: Sodium Chloride 0.9% 1,000 ML IV SCH ×2 (00:45→09:57)
[2019-02-08 05:19] LABS: #Basophils 0.1 thou/uL (0.0-0.2); #Eosinphils 0.3 thou/uL (0.0-0.7); #Lymphocytes 1.7 thou/uL (1.20-3.40); #Monocytes 0.7 thou/uL (0.11-0.59); %Basophils 1.1 % (0.0-1.0); %Eosinophils 4.1 % (0.0-10.0); %Lymphocytes 25.2 % (21.0-51.0); %Neutrophils 59.7 % (42.0-75.0); Hemoglobin 7.8 g/dL (12.0-16.0); Mean Corpuscular HGB CONC 33.4 g/dL (32.0-36.0); Mean Corpuscular Volume 89.8 fL (78.0-98.0); Mean Platelet Volume 8.2 fL (7.4-10.4); Platelet Count 228 thou/uL (130-400); RBC Distribution Width 14.4 % (11.5-14.5); White Blood Cell (WBC) Count 6.8 thou/uL (4.8-10.8)
[2019-02-08] MEDS: Levothyroxine Sodium 50 MCG TAB PO SCH (05:35)
[2019-02-08 05:43] LABS: Anion Gap 11 mmol/L (10-20); BUN (Urea Nitrogen) 17 mg/dL (9.8-20.1); Calc. Creatinine Clearance 37 mL/min (70-130); Calcium 8.1 mg/dL (7.8-10.44); Carbon Dioxide 23 mmol/L (23-31); Chloride 107 mmol/L (98-107); Estimated GFR-MDRD 52; Glucose 92 mg/dL (83-110); Sodium 137 mmol/L (136-145)
[2019-02-08 08:37] VITALS: TEMP 97.1
[2019-02-08 09:58] VITALS: BP 127/53
[2019-02-08] MEDS: Potassium Chloride 20 MEQ TAB PO SCH (09:58)
[2019-02-08] MEDS: Furosemide 40 MG TAB PO SCH (09:58)
[2019-02-08] MEDS: Carvedilol 6.25 MG TAB PO SCH (09:58)
[2019-02-08] MEDS: Atorvastatin Calcium 40 MG TAB PO SCH (09:58)
[2019-02-08] MEDS: Famotidine/PF 20 mg/2ml Vial SLOW IVP SCH (09:58)
--- NOTE | 2019-02-08 16:44 | EKG ---
Test Reason : Blood Pressure : / mmHG Vent. Rate : 057 BPM Atrial Rate : 057 BPM P-R Int : 188 ms QRS Dur : 088 ms QT Int : 504 ms P-R-T Axes : 066 017 035 degrees QTc Int : 490 ms Sinus bradycardia Confirmed by MAURICIO WHYTE DO ([id number]), legal editor JHON SOLIZ ([id number] on 02/08/2019 4:43:48 PM Referred By: Confirmed By:MAURICIO WHYTE DO
--- NOTE | 2019-02-08 23:02 | DIS ---
DATE OF ADMISSION: 02/06/2019 DATE OF DISCHARGE: 02/08/2019 HISTORY OF PRESENT ILLNESS: The patient with symptomatic anemia with apparent presyncopal syncopal episode, found to be severely anemic, 5.5 H and H on admission which appropriately responded to 3 units of PRBCs. The patient was placed on anticoagulation for paroxysmal atrial fibrillation. However, the patient was in normal sinus rhythm after being initiated on amiodarone prior by Dr. Sunshine, Cardiology. The patient has a standing history of systolic diastolic congestive heart failure secondary to valvular abnormalities among other things. Gastroenterology, Dr. Gutiérrez was consulted who performed scopes without any source of bleeding. Did take biopsy for precautions, which are still pending. However felt that these can be followed up on outpatient basis. Dr. Sunshine recommended holding anticoagulation for 2 weeks. The patient and family verbalized understanding. She will continue other home medications as routine. Follow up with Dr. Chino Dc, her PCP in the next week and Cardiology in the next month for discussions and decision on restarting anticoagulation. DISCHARGE DIAGNOSES: Resolved GI bleed; combined congestive heart failure, systolic, diastolic; paroxysmal atrial fibrillation, currently in normal sinus rhythm; symptomatic anemia secondary to blood loss, currently stable; status post PRBC transfusion. DISCHARGE DISPOSITION: Home. ACTIVITY: As tolerated. DIET: Heart healthy diet. CONDITION: Good. Job ID: [id number]
--- NOTE | 2019-02-11 10:25 | PQF ---
PREM VALERA NABOR CADE [id number] CLINICAL DOCUMENTATION CLARIFICATION FORM: POST DISCHARGE DATE: 02/11/2019 ATTN: Dr. Burch Please exercise your independent, professional judgment in responding to the clarification form. Clinical indicators are provided on the bottom of this form for your review Please check appropriate box(s): [ x ] Gastrointestinal bleed due to: [ x ] Due to Eliquis [ x ] Due to Aspirin [ ] Other diagnosis [ ] Unable to determine In addition, please specify: Present on Admission (POA): [ x ] Yes [ ] No [ ] Unable to determine For continuity of documentation, please document condition throughout progress notes and discharge summary. Thank You. CLINICAL INDICATORS - SIGNS / SYMPTOMS / LABS Per H&P: Weakness. Leg cramps and spasms. No blood in stools. Assessment: Severe pallor with hemoglobin 5.5. Plan: "Suspect the most common cause of her anemia is most likely from her aspirin and Eliquis, although her hemoccult was negative." Per PN 02/06 (Ellsworth): Assessment: Severe anemia with hemoglobin of 5.5. No signs of overt bleeding with heme-negative stool in ER. Per 02/07 consult (Jong): Gastrointestinal bleed while on Eliquis 2.5 b.i.d. Per 02/07 consult (Dao): Severe anemia, possibly related to blood loss. However, multiple occult blood tests have been negative. Per consult 02/05 (Ellsworth): Presents with severe anemia with hemoglobin of 5.5. No overt bleeding. No evidence of occult blood in ER. An occult GI blood loss will need to be excluded in her age group. Per discharge summary: Resolved GI bleed. Symptomatic anemia secondary to blood loss. RISK FACTORS Per H&P: Aspirin 1 daily. Eliquis 2.5 twice a day. TREATMENTS Per H&P: Transfuse 2 units packed red blood cells. Guaiac additional stools. Obtain GI consult. Continue to follow and do serial H and H. Per operative report: EGD with duodenal biopsy. Colonoscopy. Iron deficiency anemia on chronic anticoagulation. Per transfusion report: Three units PRBC's 02/05-. (This form is maintained as a part of the permanent medical record) 2014 [employer]. All Rights Reserved [email or web address] [phone] [facility]AL HOSPITALLinsey
== END 2019-02-08 10:35 | disposition home or self-care (01) | DRG 813 ==
LOC: ERS 11:35 → ERHOLD 13:09 → 2NO 13:20 → OBSVTOIN 02-06 11:52
PROVIDERS: ADMIT Family Medicine; ATTEND Family Medicine
PROC: 30233N1 Transfusion of Nonautologous Red Blood Cells into Peripheral Vein, Percutaneous Approach (ICD-10-PCS; 2019-02-05)
PROC: 0DB98ZX Excision of Duodenum, Via Natural or Artificial Opening Endoscopic, Diagnostic (ICD-10-PCS; principal; 2019-02-07)
PROC: 0DJD8ZZ Inspection of Lower Intestinal Tract, Via Natural or Artificial Opening Endoscopic (ICD-10-PCS; 2019-02-07)
DX: D68.32 Hemorrhagic disorder due to extrinsic circulating anticoagulants (principal); K92.2 Gastrointestinal hemorrhage, unspecified; I50.42 Chronic combined systolic (congestive) and diastolic (congestive) heart failure; I11.0 Hypertensive heart disease with heart failure; I08.0 Rheumatic disorders of both mitral and aortic valves; D50.9 Iron deficiency anemia, unspecified; K57.30 Diverticulosis of large intestine without perforation or abscess without bleeding; I48.0 Paroxysmal atrial fibrillation; E78.5 Hyperlipidemia, unspecified; T45.515A Adverse effect of anticoagulants, initial encounter; T39.015A Adverse effect of aspirin, initial encounter; Z79.01 Long term (current) use of anticoagulants; Z79.82 Long term (current) use of aspirin; Z79.899 Other long term (current) drug therapy
CPT/HCPCS: 36415; 36430; 71045; 80048; 80053; 80061; 81003; 82274; 82728; 83036; 83540; 83550; 84443; 84484; 85025; 86850; 86900; 86901; 88305; 93005; 96374; C9113; J2001; J2704; P9016; S0028

== ENCOUNTER 2019-06-24 07:51 | Outpatient (CLI) | payer MEDICARE ==
--- NOTE | 2019-06-24 08:17 | RAD ---
EXAM: Chest 2 views: HISTORY: Paroxysmal atrial fibrillation COMPARISON: None. FINDINGS: There is an enlarged cardiomediastinal silhouette. There is no evidence of consolidation, mass, or pl eural effusion. Degenerative changes are seen in the spine. IMPRESSION: No evidence of acute cardiopulmonary disease
== END 2019-06-24 07:52 | disposition home or self-care (01) ==
LOC: BICRAD 07:51
PROVIDERS: ATTEND Nurse Practitioner Family
DX: I48.0 Paroxysmal atrial fibrillation (principal)
CPT/HCPCS: 71046

== ENCOUNTER 2019-12-26 10:07 | Day surgery (SDC) | payer MEDICARE ==
[2019-12-26] MEDS ORDERED: Sodium Chloride 0.9% 20 ML ONE (10:15)
[2019-12-26] MEDS ORDERED: Acetaminophen 500 MG TAB PO SCH (10:30)
[2019-12-26] MEDS ORDERED: diphenhydrAMINE 25 MG CAP PO SCH (10:30)
[2019-12-26 11:50] VITALS: TEMP 99
[2019-12-26 13:53] LABS: Hemoglobin 7.9 g/dL (12.0-16.0)
[2019-12-26 14:10] VITALS: BP 133/87
== END 2019-12-26 14:10 | disposition home or self-care (01) ==
LOC: ONC/OP 10:07
PROVIDERS: ATTEND Internal Medicine Hematology & Oncology
PROC: 30233N1 Transfusion of Nonautologous Red Blood Cells into Peripheral Vein, Percutaneous Approach (ICD-10-PCS; principal; 2019-12-26)
DX: D64.9 Anemia, unspecified (principal); D69.6 Thrombocytopenia, unspecified
CPT/HCPCS: 36430; 85014; 85018; 86850; 86900; 86901; P9016; Q0163

== ENCOUNTER 2020-10-09 14:04 | Inpatient (IN) | payer MEDICARE ==
[2020-10-09 14:29] VITALS: BMI 23.0
[2020-10-09 21:07] VITALS: BP 139/67; TEMP 99.1
[2020-10-09 21:22] LABS: #Basophils 0.1 thou/uL (0.0-0.2); #Lymphocytes 1.7 thou/uL (1.20-3.40); #Neutrophils 12.5 thou/uL (1.40-6.50); %Basophils 0.4 % (0.0-1.0); %Lymphocytes 10.2 % (21.0-51.0); %Monocytes 6.3 % (0.0-10.0); %Neutrophils 77.3 % (42.0-75.0); Hemoglobin 10.1 g/dL (12.0-16.0); Mean Corpuscular HGB CONC 32.8 g/dL (32.0-36.0); Mean Corpuscular Hemoglobin 33.6 pg (27.0-31.0); Mean Platelet Volume 7.4 fL (7.4-10.4); Platelet Count 352 thou/uL (130-400); RBC Distribution Width 15.8 % (11.5-14.5); White Blood Cell (WBC) Count 16.2 thou/uL (4.8-10.8)
== END 2020-10-09 21:14 | disposition home or self-care (01) | DRG 812 ==
LOC: SDC 14:04 → 3SE 14:06
PROVIDERS: ADMIT Internal Medicine Hematology & Oncology; ATTEND Internal Medicine Hematology & Oncology
PROC: 30233N1 Transfusion of Nonautologous Red Blood Cells into Peripheral Vein, Percutaneous Approach (ICD-10-PCS; principal; 2020-10-09)
DX: D64.9 Anemia, unspecified (principal); D69.59 Other secondary thrombocytopenia
CPT/HCPCS: 36415; 36430; 85025; 86850; 86900; 86901; P9016

== ENCOUNTER 2020-10-22 08:27 | Outpatient (CLI) | payer MEDICARE ==
--- NOTE | 2020-10-22 10:03 | RAD ---
2 VIEW CHEST: DATE: 10/22/2020 INDICATION: Atrial fibrillation. COMPARISON: 06/24/2019. FINDINGS/IMPRESSION: Mild cardiomegaly is stable. Vascular markings show mild engorgement. Diffuse interstitial haziness seen throughout both lungs. This could represent mild edema, although i nterstitial infiltrates should be excluded. There is no confluent consolidation and no significant ef fusion. POS: AGW
== END 2020-10-22 08:28 | disposition home or self-care (01) ==
LOC: BICRAD 08:27
PROVIDERS: ATTEND Nurse Practitioner Family
DX: I48.0 Paroxysmal atrial fibrillation (principal); I51.7 Cardiomegaly; R91.8 Other nonspecific abnormal finding of lung field; J84.89 Other specified interstitial pulmonary diseases; J81.1 Chronic pulmonary edema
CPT/HCPCS: 71046

== ENCOUNTER 2020-11-09 09:20 | Day surgery (SDC) | payer MEDICARE ==
[2020-11-09] MEDS ORDERED: Acetaminophen 500 MG TAB PO PRN (11:42)
[2020-11-09] MEDS ORDERED: diphenhydrAMINE 25 MG CAP PO PRN (11:43)
[2020-11-09 16:52] LABS: Hemoglobin 8.9 g/dL (12.0-16.0)
[2020-11-09 16:57] VITALS: BP 127/67; TEMP 98.1
== END 2020-11-09 16:58 | disposition home or self-care (01) ==
LOC: ONC/OP 09:20
PROVIDERS: ATTEND Internal Medicine Hematology & Oncology
PROC: 30233N1 Transfusion of Nonautologous Red Blood Cells into Peripheral Vein, Percutaneous Approach (ICD-10-PCS; principal; 2020-11-09)
DX: D64.9 Anemia, unspecified (principal); D69.6 Thrombocytopenia, unspecified
CPT/HCPCS: 36415; 36430; 80053; 85014; 85018; 86850; 86900; 86901; P9016; Q0163

== ENCOUNTER 2021-01-10 10:48 | Day surgery (SDC) | payer MEDICARE ==
[2021-01-10] MEDS ORDERED: Acetaminophen 500 MG TAB PO PRN (12:10)
[2021-01-10] MEDS ORDERED: diphenhydrAMINE 25 MG CAP PO PRN (12:10)
[2021-01-10 16:13] VITALS: BP 119/59; TEMP 98.1
== END 2021-01-10 16:13 | disposition home or self-care (01) ==
LOC: ONC/OP 10:48
PROVIDERS: ATTEND Internal Medicine Hematology & Oncology
PROC: 30233N1 Transfusion of Nonautologous Red Blood Cells into Peripheral Vein, Percutaneous Approach (ICD-10-PCS; principal; 2021-01-10)
DX: D64.9 Anemia, unspecified (principal); D69.6 Thrombocytopenia, unspecified; D50.0 Iron deficiency anemia secondary to blood loss (chronic); D75.89 Other specified diseases of blood and blood-forming organs
CPT/HCPCS: 36430; 82728; 83540; 83550; 86850; 86900; 86901; P9016; Q0163

== ENCOUNTER 2021-01-25 08:31 | Outpatient (CLI) | payer MEDICARE ==
[2021-01-25] MEDS ORDERED: Iopamidol 370 76% 100 ML VIAL ONE (10:36)
== END 2021-01-25 08:32 | disposition home or self-care (01) ==
LOC: BICCT 08:31
PROVIDERS: ATTEND Internal Medicine Cardiovascular Disease
DX: I48.91 Unspecified atrial fibrillation (principal); R06.02 Shortness of breath; R91.8 Other nonspecific abnormal finding of lung field
CPT/HCPCS: 71275; 82565; Q9967

== ENCOUNTER 2021-05-19 10:02 | Day surgery (SDC) | payer MEDICARE ==
[2021-05-19] MEDS ORDERED: Acetaminophen 500 MG TAB PO SCH (10:30)
[2021-05-19] MEDS ORDERED: diphenhydrAMINE 25 MG CAP PO SCH (10:30)
[2021-05-19 14:34] VITALS: BP 122/59; TEMP 97.9
== END 2021-05-19 14:34 | disposition home or self-care (01) ==
LOC: ONC/OP 10:02
PROVIDERS: ATTEND Internal Medicine Hematology & Oncology
PROC: 30233N1 Transfusion of Nonautologous Red Blood Cells into Peripheral Vein, Percutaneous Approach (ICD-10-PCS; principal; 2021-05-19)
DX: D64.9 Anemia, unspecified (principal); D69.6 Thrombocytopenia, unspecified
CPT/HCPCS: 36430; 86850; 86900; 86901; P9016; Q0163

== ENCOUNTER 2022-11-28 05:46 | Emergency (ER) | payer MEDICARE ==
[2022-11-28 07:35] LABS: #Eosinphils 0.2 thou/uL (0.0-0.7); #Lymphocytes 0.8 thou/uL (1.20-3.40); #Monocytes 0.3 thou/uL (0.11-0.59); #Neutrophils 8.3 thou/uL (1.40-6.50); %Basophils 0.2 % (0.0-1.0); %Eosinophils 2.1 % (0.0-10.0); %Lymphocytes 8.2 % (21.0-51.0); %Monocytes 3.4 % (0.0-10.0); %Neutrophils 86.1 % (42.0-75.0); Hemoglobin 11.9 g/dL (12.0-16.0); Mean Corpuscular Hemoglobin 32.3 pg (27.0-31.0); Mean Corpuscular Volume 97.8 fl (78.0-98.0); Mean Platelet Volume 8.3 fL (7.4-10.4); Platelet Count 255 10x3/uL (130-400); RBC Distribution Width 13.1 % (11.5-14.5); Red Blood Cell (RBC) Count 3.69 mill/uL (4.20-5.40); White Blood Cell (WBC) Count 9.7 10x3/uL (4.8-10.8)
[2022-11-28] MEDS ORDERED: Iopamidol-370 76% 500 ML 1 ML ONE (07:48)
[2022-11-28 07:55] LABS: ALT (SGPT) 15 U/L (8-55); AST (SGOT) 19 U/L (5-34); Albumin 4.1 g/dL (3.4-4.8); Alkaline Phosphatase 79 U/L (40-110); Anion Gap 14 mmol/L (10-20); BUN (Urea Nitrogen) 24 mg/dL (9.8-20.1); Bilirubin, Total 0.9 mg/dL (0.2-1.2); Calc. Creatinine Clearance 0 mL/min (70-130); Calcium 9.5 mg/dL (7.8-10.44); Carbon Dioxide 24 mmol/L (23-31); Chloride 101 mmol/L (98-107); Estimated GFR 31; Globulin 3.5 g/dL (2.4-3.5); Glucose 95 mg/dL (83-110); Potassium 4.1 mmol/L (3.5-5.1); Protein, Total 7.6 g/dL (5.8-8.1); Sodium 135 mmol/L (136-145)
== END 2022-11-28 09:45 | disposition home or self-care (01) ==
LOC: ERS 05:46
DX: K52.9 Noninfective gastroenteritis and colitis, unspecified (principal); N17.9 Acute kidney failure, unspecified; I31.39 Other pericardial effusion (noninflammatory); E03.9 Hypothyroidism, unspecified; E78.00 Pure hypercholesterolemia, unspecified; I10 Essential (primary) hypertension
CPT/HCPCS: 74177; 80053; 85025; 93005; Q9967

== ENCOUNTER 2022-12-01 11:55 | Inpatient (IN) | payer MEDICARE ==
[2022-12-01 13:09] LABS: Hemoglobin 10.9 g/dL (12.0-16.0); Mean Corpuscular HGB CONC 33.2 g/dL (32.0-36.0); Mean Corpuscular Hemoglobin 32.2 pg (27.0-31.0); Mean Corpuscular Volume 96.8 fl (78.0-98.0); Mean Platelet Volume 8.5 fL (7.4-10.4); Platelet Count 237 10x3/uL (130-400); Red Blood Cell (RBC) Count 3.39 mill/uL (4.20-5.40); White Blood Cell (WBC) Count 7.8 10x3/uL (4.8-10.8)
[2022-12-01 13:20] LABS: ALT (SGPT) 22 U/L (8-55); AST (SGOT) 22 U/L (5-34); Albumin 3.7 g/dL (3.4-4.8); Alkaline Phosphatase 66 U/L (40-110); Anion Gap 14 mmol/L (10-20); BUN (Urea Nitrogen) 37 mg/dL (9.8-20.1); Bilirubin, Total 0.8 mg/dL (0.2-1.2); Calc. Creatinine Clearance 0 mL/min (70-130); Calcium 9.1 mg/dL (7.8-10.44); Carbon Dioxide 23 mmol/L (23-31); Chloride 99 mmol/L (98-107); Estimated GFR 33; Globulin 3.4 g/dL (2.4-3.5); Glucose 95 mg/dL (83-110); Lipase 90 U/L (8-78); Magnesium 2.1 mg/dL (1.6-2.6); Protein, Total 7.1 g/dL (5.8-8.1); Sodium 132 mmol/L (136-145)
[2022-12-01 13:25] LABS: Band 18 % (5-11); Burr Cells SLIGHT = 2-5 cells (100X) (0-1/hpf); Eosinophils 3 % (0-10); Lymphocytes 8 % (21-51); MDiff Complete? YES; Monocytes 19 % (0-10); Neutrophil 52 % (42-75); Platelet Morphology Comment Appears Adequate; Vacuoles SLIGHT
[2022-12-01] MEDS ORDERED: Pantoprazole 80 MG, Admixture Fee 1 EACH in Sodium Chloride 0.9% 100 ML IVPB SCH (14:30)
[2022-12-01] MEDS ORDERED: Pantoprazole 40 MG VIAL ONE (14:58)
[2022-12-01] MEDS ORDERED: metroNIDAZOLE 500 MG/100 ML BAG ONE (14:58)
[2022-12-01 15:55] LABS: Bacteria/HPF None Seen HPF (None Seen); Bilirubin Negative (Negative); Blood, Urine Trace (Negative); Clarity Clear (Clear); Glucose, Urine (Dipstick) Normal (Negative); Ketone, Urine 10 mg/dL (Negative); Leukocyte Negative Leu/uL (Negative); Nitrite Negative (Negative); Protein, Urine (Dipstick) 10 mg/dL (Neg-Trace); RBC/HPF 0-3 HPF (0-3); Specific Gravity, Urine 1.036 (1.002-1.036); Squamous Epithelial None Seen HPF (0-3); Urobilinogen Normal mg/dL (Less than 2); WBC/HPF None Seen HPF (0-3)
[2022-12-01] MEDS ORDERED: Iopamidol-370 76% 500 ML 1 ML ONE (15:58)
[2022-12-01 17:21] VITALS: BMI 22.5
[2022-12-01] MEDS ORDERED: Morphine 2 MG/ML VIAL SLOW IVP PRN (17:27)
[2022-12-01] MEDS: Sodium Chloride 0.9% 1,000 ML IV SCH (17:53)
[2022-12-01] MEDS ORDERED: Melatonin 3 MG TAB PO PRN (18:53)
[2022-12-01] MEDS: Atorvastatin Calcium 40 MG TAB PO SCH (20:18)
[2022-12-02] MEDS: metroNIDAZOLE 500 MG in Premix Bag 1 BAG IVPB SCH ×3 (00:13→16:20)
[2022-12-02] MEDS: Sodium Chloride 0.9% 1,000 ML IV SCH ×2 (04:42→12:41)
[2022-12-02] MEDS: Levothyroxine Sodium 50 MCG TAB PO SCH (04:47)
[2022-12-02] MEDS: Carvedilol 6.25 MG TAB PO SCH ×2 (08:24→16:22)
[2022-12-02] MEDS: Ezetimibe 10 MG TAB PO SCH (08:24)
[2022-12-02 08:48] LABS: ALT (SGPT) 21 U/L (8-55); AST (SGOT) 21 U/L (5-34); Alkaline Phosphatase 50 U/L (40-110); Anion Gap 11 mmol/L (10-20); BUN (Urea Nitrogen) 27 mg/dL (9.8-20.1); Bilirubin, Total 0.6 mg/dL (0.2-1.2); Calc. Creatinine Clearance 32 mL/min (70-130); Calcium 8.4 mg/dL (7.8-10.44); Carbon Dioxide 22 mmol/L (23-31); Chloride 105 mmol/L (98-107); Estimated GFR 48; Globulin 2.7 g/dL (2.4-3.5); Glucose 81 mg/dL (83-110); Magnesium 2.1 mg/dL (1.6-2.6); Protein, Total 5.7 g/dL (5.8-8.1); Sodium 134 mmol/L (136-145)
[2022-12-02] MEDS ORDERED: Amiodarone 200 MG TAB PO SCH (09:00)
[2022-12-02 09:01] LABS: Band 56 % (5-11); Hemoglobin 9.4 g/dL (12.0-16.0); Lymphocytes 9 % (21-51); MDiff Complete? YES; Macrocytosis SLIGHT = 6-15 cells (100X) (0-5/hpf); Mean Corpuscular HGB CONC 32.7 g/dL (32.0-36.0); Mean Corpuscular Hemoglobin 32.3 pg (27.0-31.0); Mean Platelet Volume 8.3 fL (7.4-10.4); Monocytes 14 % (0-10); Neutrophil 19 % (42-75); Platelet Count 203 10x3/uL (130-400); Platelet Morphology Comment Appears Adequate; Reactive Lymphocytes 2 % (0-10); Red Blood Cell (RBC) Count 2.92 mill/uL (4.20-5.40)
[2022-12-02] MEDS: Vancomycin HCl 125 MG/5 ML (BATCHED) UDCUP PO SCH ×3 (10:06→20:06)
[2022-12-02 22:05] LABS: Campy jejuni + coli by PCR Negative (Negative); STEC Shiga Toxin 1+2 Negative (Negative); Salmonella spp. by PCR Negative (Negative); Shigella spp + EIEC by PCR Negative (Negative)
[2022-12-03] MEDS: Vancomycin HCl 125 MG/5 ML (BATCHED) UDCUP PO SCH ×4 (02:33→23:05)
[2022-12-03] MEDS: Sodium Chloride 0.9% 1,000 ML IV SCH ×4 (05:10→20:01)
[2022-12-03] MEDS: Levothyroxine Sodium 50 MCG TAB PO SCH (05:44)
[2022-12-03 07:31] LABS: Mean Corpuscular HGB CONC 32.3 g/dL (32.0-36.0); Mean Corpuscular Hemoglobin 32.1 pg (27.0-31.0); Mean Corpuscular Volume 99.3 fl (78.0-98.0); Mean Platelet Volume 8.4 fL (7.4-10.4); Platelet Count 216 10x3/uL (130-400); Red Blood Cell (RBC) Count 3.13 mill/uL (4.20-5.40); White Blood Cell (WBC) Count 9.3 10x3/uL (4.8-10.8)
[2022-12-03 07:52] LABS: Anion Gap 12 mmol/L (10-20); BUN (Urea Nitrogen) 22 mg/dL (9.8-20.1); Calc. Creatinine Clearance 39 mL/min (70-130); Calcium 8.5 mg/dL (7.8-10.44); Carbon Dioxide 18 mmol/L (23-31); Chloride 106 mmol/L (98-107); Estimated GFR 59; Glucose 81 mg/dL (83-110); Potassium 3.6 mmol/L (3.5-5.1); Sodium 132 mmol/L (136-145)
[2022-12-03 08:36] LABS: Band 28 % (5-11); Burr Cells SLIGHT = 2-5 cells (100X) (0-1/hpf); Eosinophils 2 % (0-10); Lymphocytes 8 % (21-51); MDiff Complete? YES; Macrocytosis SLIGHT = 6-15 cells (100X) (0-5/hpf); Monocytes 9 % (0-10); Neutrophil 52 % (42-75); Ovalocytes SLIGHT = 2-5 cells (100X) (0-1/hpf); Platelet Morphology Comment Appears Adequate; Polychromasia SLIGHT = 2-3 cells (100X) (0-2/hpf); Reactive Lymphocytes 1 % (0-10); Tear Drops SLIGHT = 2-5 cells (100X) (0-1/hpf)
[2022-12-03] MEDS: metroNIDAZOLE 500 MG in Premix Bag 1 BAG IVPB SCH ×4 (08:51→23:05)
[2022-12-03] MEDS: Carvedilol 6.25 MG TAB PO SCH ×2 (08:52→16:17)
[2022-12-03] MEDS: Ezetimibe 10 MG TAB PO SCH (08:52)
[2022-12-03] MEDS ORDERED: Vancomycin HCl 125 MG/5 ML (BATCHED) UDCUP PO SCH (14:00)
[2022-12-03] MEDS: Atorvastatin Calcium 40 MG TAB PO SCH (20:01)
[2022-12-04] MEDS: Levothyroxine Sodium 50 MCG TAB PO SCH (05:28)
[2022-12-04] MEDS: Vancomycin HCl 125 MG/5 ML (BATCHED) UDCUP PO SCH ×3 (05:29→18:32)
[2022-12-04] MEDS: Acetaminophen 325 MG TAB PO PRN ×2 (06:03→18:32)
[2022-12-04 06:28] LABS: Hemoglobin 10.2 g/dL (12.0-16.0); Mean Corpuscular HGB CONC 33.4 g/dL (32.0-36.0); Mean Corpuscular Hemoglobin 32.5 pg (27.0-31.0); Mean Corpuscular Volume 97.3 fl (78.0-98.0); Mean Platelet Volume 8.2 fL (7.4-10.4); Platelet Count 218 10x3/uL (130-400); RBC Distribution Width 12.9 % (11.5-14.5); Red Blood Cell (RBC) Count 3.15 mill/uL (4.20-5.40); White Blood Cell (WBC) Count 9.5 10x3/uL (4.8-10.8)
[2022-12-04 06:55] LABS: Band 16 % (5-11); Eosinophils 3 % (0-10); Lymphocytes 14 % (21-51); MDiff Complete? YES; Monocytes 8 % (0-10); Myelocyte 4 % (0-0); Neutrophil 55 % (42-75)
[2022-12-04 07:02] LABS: Anion Gap 14 mmol/L (10-20); BUN (Urea Nitrogen) 18 mg/dL (9.8-20.1); Calc. Creatinine Clearance 46 mL/min (70-130); Calcium 8.3 mg/dL (7.8-10.44); Carbon Dioxide 16 mmol/L (23-31); Chloride 107 mmol/L (98-107); Estimated GFR 73; Glucose 87 mg/dL (83-110); Potassium 3.7 mmol/L (3.5-5.1); Sodium 133 mmol/L (136-145)
[2022-12-04] MEDS: Amiodarone 200 MG TAB PO SCH (08:33)
[2022-12-04] MEDS: Saccharomyces boulardii 250 MG CAP PO SCH (08:33)
[2022-12-04] MEDS: metroNIDAZOLE 500 MG in Premix Bag 1 BAG IVPB SCH ×2 (08:33→15:28)
[2022-12-04] MEDS: Ezetimibe 10 MG TAB PO SCH (08:33)
[2022-12-04] MEDS: Carvedilol 6.25 MG TAB PO SCH ×2 (08:34→17:31)
[2022-12-04] MEDS: Sodium Chloride 0.9% 1,000 ML IV SCH (08:35)
[2022-12-04] MEDS ORDERED: Sodium Bicarbonate Tab 325 MG TAB PO SCH (10:30)
[2022-12-04] MEDS: Sodium Bicarbonate Tab 325 MG TAB PO SCH ×2 (15:27→21:47)
[2022-12-04] MEDS ORDERED: Melatonin 3 MG TAB PO SCH (20:15)
[2022-12-04] MEDS: Atorvastatin Calcium 40 MG TAB PO SCH (21:47)
[2022-12-05] MEDS: metroNIDAZOLE 500 MG in Premix Bag 1 BAG IVPB SCH ×2 (00:09→09:15)
[2022-12-05] MEDS: Vancomycin HCl 125 MG/5 ML (BATCHED) UDCUP PO SCH ×2 (00:10→06:19)
[2022-12-05] MEDS: Levothyroxine Sodium 50 MCG TAB PO SCH (06:17)
[2022-12-05 07:15] LABS: Anion Gap 10 mmol/L (10-20); BUN (Urea Nitrogen) 12 mg/dL (9.8-20.1); Calc. Creatinine Clearance 48 mL/min (70-130); Calcium 8.1 mg/dL (7.8-10.44); Carbon Dioxide 21 mmol/L (23-31); Chloride 106 mmol/L (98-107); Estimated GFR 78; Glucose 93 mg/dL (83-110); Potassium 3.8 mmol/L (3.5-5.1); Sodium 133 mmol/L (136-145)
[2022-12-05 07:19] LABS: Hemoglobin 10.1 g/dL (12.0-16.0); Mean Corpuscular HGB CONC 31.9 g/dL (32.0-36.0); Mean Corpuscular Hemoglobin 31.2 pg (27.0-31.0); Mean Platelet Volume 8.4 fL (7.4-10.4); Platelet Count 239 10x3/uL (130-400); Red Blood Cell (RBC) Count 3.24 mill/uL (4.20-5.40)
[2022-12-05] MEDS: Ezetimibe 10 MG TAB PO SCH (09:15)
[2022-12-05] MEDS: Amiodarone 200 MG TAB PO SCH (09:15)
[2022-12-05] MEDS: Carvedilol 6.25 MG TAB PO SCH (09:15)
[2022-12-05] MEDS: Saccharomyces boulardii 250 MG CAP PO SCH (09:15)
[2022-12-05] MEDS: Sodium Bicarbonate Tab 325 MG TAB PO SCH (09:15)
[2022-12-05 09:43] VITALS: TEMP 97.7
[2022-12-05 10:06] LABS: Band 10 % (5-11); Burr Cells MODERATE= 6-15 cells (100X) (0-1/hpf); Eosinophils 2 % (0-10); Lymphocytes 24 % (21-51); MDiff Complete? YES; Metamyelocyte 3 % (0-0); Monocytes 9 % (0-10); Myelocyte 2 % (0-0); Neutrophil 49 % (42-75); Platelet Morphology Comment Appears Adequate; Polychromasia SLIGHT = 2-3 cells (100X) (0-2/hpf); Reactive Lymphocytes 1 % (0-10)
[2022-12-05 12:20] VITALS: BP 166/98
== END 2022-12-05 12:21 | disposition home or self-care (01) | DRG 872 ==
LOC: ERS 11:55 → T4-B 14:48
PROVIDERS: ADMIT Family Medicine; ATTEND Internal Medicine
DX: A41.4 Sepsis due to anaerobes (principal); A04.72 Enterocolitis due to Clostridium difficile, not specified as recurrent; E87.1 Hypo-osmolality and hyponatremia; N17.9 Acute kidney failure, unspecified; E87.20 Acidosis, unspecified; R65.20 Severe sepsis without septic shock; E78.00 Pure hypercholesterolemia, unspecified; E03.9 Hypothyroidism, unspecified; E86.0 Dehydration; I48.0 Paroxysmal atrial fibrillation; I12.9 Hypertensive chronic kidney disease with stage 1 through stage 4 chronic kidney disease, or unspecified chronic kidney disease; N18.30 Chronic kidney disease, stage 3 unspecified; Z20.822 Contact with and (suspected) exposure to COVID-19; Z79.899 Other long term (current) drug therapy; Z79.890 Hormone replacement therapy
CPT/HCPCS: 36415; 74177; 80048; 80053; 81003; 81015; 82274; 83605; 83690; 83735; 84100; 84145; 85025; 87040; 87324; 87449; 87505; 94760; C9113; J0744; J3490; J7050; Q9967; U0003; U0005

== ENCOUNTER 2022-12-22 08:07 | Outpatient (CLI) | payer MEDICARE | END 2022-12-22 08:08 | disposition home or self-care (01) | LOC: BICRAD 08:07 | PROVIDERS: ATTEND Nurse Practitioner Family | DX: I48.0 Paroxysmal atrial fibrillation (principal); J98.4 Other disorders of lung | CPT/HCPCS: 71046 ==

== ENCOUNTER 2023-01-26 06:23 | Emergency (ER) | payer MEDICARE ==
[2023-01-26 08:06] LABS: #Eosinphils 0.1 thou/uL (0.0-0.7); #Lymphocytes 0.6 thou/uL (1.20-3.40); #Monocytes 0.7 thou/uL (0.11-0.59); #Neutrophils 8.9 thou/uL (1.40-6.50); %Basophils 0.4 % (0.0-1.0); %Lymphocytes 5.6 % (21.0-51.0); %Monocytes 6.6 % (0.0-10.0); %Neutrophils 86.5 % (42.0-75.0); Hemoglobin 12.2 g/dL (12.0-16.0); Mean Corpuscular HGB CONC 32.2 g/dL (32.0-36.0); Mean Corpuscular Hemoglobin 32.2 pg (27.0-31.0); Mean Corpuscular Volume 99.8 fl (78.0-98.0); Mean Platelet Volume 8.1 fL (7.4-10.4); Platelet Count 207 10x3/uL (130-400); RBC Distribution Width 13.8 % (11.5-14.5); Red Blood Cell (RBC) Count 3.78 mill/uL (4.20-5.40); White Blood Cell (WBC) Count 10.3 10x3/uL (4.8-10.8)
[2023-01-26 08:28] LABS: ALT (SGPT) 13 U/L (8-55); AST (SGOT) 15 U/L (5-34); Albumin 3.8 g/dL (3.4-4.8); Alkaline Phosphatase 77 U/L (40-110); Anion Gap 11 mmol/L (10-20); BUN (Urea Nitrogen) 17 mg/dL (9.8-20.1); Bilirubin, Total 1.1 mg/dL (0.2-1.2); Calc. Creatinine Clearance 0 mL/min (70-130); Carbon Dioxide 24 mmol/L (23-31); Chloride 103 mmol/L (98-107); Estimated GFR 42; Globulin 2.7 g/dL (2.4-3.5); Glucose 98 mg/dL (83-110); Lipase 18 U/L (8-78); Protein, Total 6.5 g/dL (5.8-8.1); Sodium 134 mmol/L (136-145)
[2023-01-26] MEDS ORDERED: ISOVUE-370 76%-LOCM 1 ML ONE (14:44)
== END 2023-01-26 12:33 | disposition home or self-care (01) ==
LOC: ERS 06:23
DX: K92.2 Gastrointestinal hemorrhage, unspecified (principal); E03.9 Hypothyroidism, unspecified; E78.5 Hyperlipidemia, unspecified; I10 Essential (primary) hypertension
CPT/HCPCS: 36415; 74177; 80053; 82274; 83690; 84443; 85025; 87324; 87449; 96360; 96361